=== PATIENT | female | born 1955 | race Caucasian/White ===

== ENCOUNTER → 2016-08-14 | Outpatient (CLI) | payer OTHER ==
[~2016-08-14] MED LIST: CHOL100027 PO; CITA40TA4 PO; ESTR1TAB2 PO; FLUC150T54 PO; HYDR1CAP85 PO; KETO2CRE14 TOP; LACTCAP PEG; LAMO25TA PO; LEVO125T72 PO; LORA-741 PO; SODI1TAB17 PO; VITA400C3 PO
--- NOTE | 2016-08-15 05:39 | PAP/PSG TECHNICIAN REPORT ---
[facility] Clinical Applications Specialist Polysomnogram Report Study name: None Report date: 08/15/2016 Study date: 08/14/2016 Referring Physician: Selam ROBLEDO M.D. Name: KENTRELL ROSE Interpreting Physician: Leida Robledo M.D. Date of : 1955 Clinical Applications Specialist: Mana Hernandez RPS. Sex: Female Age: 61 Study Type: PSG PAP Weight: 232 lbs Height: 61 years, Height 5' 2" BMI: 42.43 Medications: LEVOTHYROXINE 125 MCG, LAMOTRIGINE 25 MG, LATANOPROST 0.005%, POLYETHYL GLYCOL-PROPYL GLYCOL 0.4-0.3% OPHTHALMIC SOLN, MULTI VIT, LORAZEPAM 0.5 MG, CITALOPRAM 40 MG, ESTRADIOL 1 MG, VIT E 400 UNIT, NYSTATIN [id number] UNIT/GM Patient History 61 yr-old female here for a new CPAP treatment study. She was found to be positive for ELIZABETH via a home sleep study. Her AHI was 21.7. She chose a Quattro Air full face mask size medium from [employer]. The test was started on room air and 4 CMH2O. ETCO2 testing was not utilized during this study. Room 1 Parameters Monitored NPSG: E1-M2, E2-M1, Fp1-M2, Fp2-M1, F3-M2, F4-M2, F4-M1, C3-M2, C4-M2, C4-M1, O1-M2, O2-M2, O2-M1, T3-M2, T4-M1, P3-M2, P4-M1, CHIN1, CHIN2, HR, EKG, Legs, PFLOW, SNOR, FLOW, CFLOW, Tidal Volume, THOR, ABDO, SpO2, PLTH, CPRESS, ETCO2 Wave, ETCO2, pH Sleep Architecture Sleep Stages Time at Lights Off 10:19:15 PM STAGES Time (min.) TST (%) Time at Lights On 5:28:15 AM Wake 317.0 -- Total Recording Time (TRT) 429.00 min. N1 25.0 22 Total Sleep Period (TSP) 259.5 min. N2 70.0 63 Total Sleep Time (TST) 112.0min. N3 17.0 15 Awake Time 317.0 min. REM 0.0 0 Wake after Sleep Onset 223.5 min. Sleep Efficiency (SE) 26 % Sleep Onset Latency (JT) 93.5 min. Number of Stage 1 Shifts None Awakenings 10 Stage Changes 43 Number of REM periods N/A REM 0.0 0 REM Latency NONE min. NREM 112.0 100 Body Position Analysis Supine Right Left Side Prone Vertical Total Sleep Time (min.) 63.9 2.5 109.5 112.00 0.0 0.0 Total Sleep Time (%) 0% 2% 98% 100 0% N/A% Total Sleep Time REM (min.) 0.0 0.0 0.0 None 0.0 0.0 Total Sleep Time NREM (min.) 0.0 2.5 109.5 None 0.0 0.0 Intermittent Wake (min.) 63.9 104.2 148.9 None 0.0 0.0 Total Sleep Period (%) 8% None None None None None Arousals Myoclonus (PLM) * Events Count Index Events Count Index Spontaneous 8 4 Events Awake (PLMW) 569 107.7 Respiratory 4 2.1 Events Asleep w/ Arousal (PLMA) 32 17.1 PLM 31 17 Events Asleep w/o Arousal (PLMS) 48 25.7 Snoring 0 0 Total Asleep 80 42.9 Total 43 23 Total 649 91 Respiratory Analysis * CA OA MA CH H RERA Total Count 0 1 0 0 17 0 18 Index 0.0 0.5 0.0 0 9.1 0 9.6 Mean Duration 0.0 10.0 0.0 0.00 15.9 0.0 15.6 Longest Duration 0.0 10.0 0.0 0.00 0.0 0.0 17.8 Respiratory Event Summary Total Supine ~Supine Right Left Prone REM NREM Apneas Count 1 N/A 1 0 1 N/A N/A 1 Index 0.5 N/A 1 0.0 0.5 N/A N/A 1 Hypopneas (4% Desat) Count 17 N/A 17 1 16 N/A N/A 17 Index 9.1 N/A 9 24.0 8.8 N/A N/A 9.1 Apneas & All Hypopneas Count 18 N/A 18 1 17 N/A N/A 18 Index 9.6 N/A 10 24 9 N/A N/A 9.6 Respiratory Events (Content Editor+All Hyp+RERA) Count 18 N/A 18 1 17 N/A N/A 18 Index 9.6 N/A 10 24.0 9.3 N/A N/A 9.6 Respiratory Related Arousal Count 4 N/A 4 1 3 N/A N/A 4 Index 2.1 N/A 2 24 2 N/A N/A 2 Snoring Analysis Supine Right Left Prone REM NREM Total Snore duration 1.7 min Snores count N/A 0 95 N/A N/A 95 95 Snore mean duration 1.0 Sec Snores index N/A 0 52 N/A N/A 50.9 50.9 TST with snoring (%) 1.5% Desaturation Event Summary: Minimum %SpO2 Event Count Mean/Min/Max Duration(sec.) Desaturation Index % Time In Bed > 90 113 23.1 / 4.3 / 57.8 53.6 31.1 86 - 90 95 19.5 / 8.0 / 60.0 21.2 66.2 81 - 85 0 N/A 0.0 2.7 76 - 80 0 N/A 0.0 0.0 71 - 75 0 N/A 0.0 0.0 66 - 70 0 N/A 0.0 0.0 61 - 65 0 N/A 0.0 0.0 56 - 60 0 N/A 0.0 0.0 51 - 55 0 N/A 0.0 0.0 < 50 0 N/A 0.0 0.0 Total REM NREM Awake <50% 0.0 min. 0.0 min. 0.0 min. 0.0 min. 51 - 60% 0.0 min. 0.0 min. 0.0 min. 0.0 min. 61 - 70% 0.0 min. 0.0 min. 0.0 min. 0.0 min. 71 - 80% 0.0 min. 0.0 min. 0.0 min. 0.0 min. 81 - 90% 280.2 min. 0.0 min. 106.4 min. 173.8 min. 91 - 100% 126.5 min. 0.0 min. 5.6 min. 120.9 min. Average 90 0 88 90 Minimum SpO2 80 N/A 83 80 Desaturation Event Index 21.1 0.0 17.7 22.3 # Desat. Events below 89% 111 N/A 32 79 Time(%) with Saturation below 89% 33.2 0.0 17.6 15.6 Time(min.) with Saturation below 89% 135.0 0.0 71.6 63.4 Time (mins) REM (mins) NREM (mins) % of TST SpO2 Below 90% 33 N/A N33 83.6 SpO2 Below 88% 11 0 0 39 Heart Rate Analysis Min (bpm) Max (bpm) Average (bpm) Awake 67 93 80 NREM 67 84 75 REM N/A N/A N/A Overall 67 84 75 Supplemental O2 Values Minimum O2 level: None Value Start Time End Time Clinical Applications Specialist Comments Ms. Rose slept in the right, left, and supine positions. No cardiac arrhythmias were noted. No bruxism noted. CPAP was initiated at +4 CMH2O and up-titrated to a level of +9 CMH2O, Cflex 3 which nearly eliminated all respiratory events and snoring. A Quattro Air full face mask size medium from [employer] was used during titration She awoke to use the restroom two times during the night. Ms. Rose stated that she did not sleep as well as normal. The final report will be interpreted and signed by a sleep physician. The completed physician report will then be placed in the patient medical record. Therapy Event: Therapy (cm H20) 4 6 7 9 Total Time at Pressure (min.) 97.9 174.5 47.0 109.6 TST at Pressure (min.) 2.9 39.5 37.0 32.6 # Periods 1 1 1 1 Sleep Onset (min.) 93.5 0.0 0.0 0.0 REM Onset (min.) N/A N/A N/A N/A Sleep Efficiency % 3 22 78 29 Wakefulness (%) 97.0 77.4 21.3 70.3 Wakefulness (min.) 95.0 135.0 10.0 77.0 NREM 1 (%) 3.0 4.6 18.1 5.0 NREM 1 (min.) 2.9 8.1 8.5 5.5 NREM 2 (%) 0.0 12.9 48.7 22.4 NREM 2 (min.) 0.0 22.5 22.9 24.6 NREM 3 (%) 0.0 5.1 12.0 2.3 NREM 3 (min.) 0.0 8.9 5.6 2.5 REM (%) 0.0 0.0 0.0 0.0 REM (min.) 0.0 0.0 0.0 0.0 # Arousals 6 14 14 9 Arousal Index 123.9 21.3 22.7 16.6 # Snore 1 57 27 10 Snore Index 20.6 86.7 43.7 18.4 AHI 0.0 4.6 21.1 3.7 AHI Supine N/A N/A N/A N/A AHI Non-Supine 0.0 4.6 21.1 3.7 NREM AHI 0.0 4.6 21.1 3.7 REM AHI N/A N/A N/A N/A RDI 0.0 4.6 21.1 3.7 # Obstructive 0 0 1 0 # Central Ap 0 0 0 0 # Mixed 0 0 0 0 # Hypopneas 0 3 12 2 RERAS 0 0 0 0 Total Respiratory Events 0 3 13 2 Time Below SpO2 89.00% (min.) 2.0 36.9 25.6 7.1 Mean NREM SpO2 (%) 88 87 88 89 Mean REM SpO2 (%) N/A N/A N/A N/A Mean Sleep SpO2 (%) 88 87 88 89 Min NREM SpO2 (%) 85 83 84 86 Min REM SpO2 (%) N/A N/A N/A N/A Position Supine (min.) 0.0 0.0 0.0 0.0 Position Non-supine (min.) 2.9 39.5 37.0 32.6 LM Index Sleep 206.4 48.7 38.9 25.8 LM Index NREM 206.4 48.7 38.9 25.8 LM Index REM N/A N/A N/A N/A Mean Heart Rate (bpm) 78 78 74 73 Min Heart Rate (bpm) 75 73 68 67
--- NOTE | 2016-09-08 10:17 | POLYSOMNOGRAPH REPORT ---
REFERRING PERSON: Dr. Mau Robledo. MACHINERY DISMANTLER: Mana Hernandez. Ms. Pelletier is a 61-year-old female who was shown to have moderately severe sleep apnea on a home sleep test and returns to the sleep lab for titration. Her original AHI was 21.7. She has chosen a medium Quattro Air full facemask by [employer]. Following the technical and digital specifications of the [place] [employer] (AASM) a standard diagnostic polysomnogram was performed monitoring EEG, EOG, EMG (chin and leg deviations), oxygen saturation, body position, digital video, respiratory effort and airflow. The sleep Stage and event scoring was based on the AASM Manual for the Scoring of Sleep and Associated Events 2007 edition. Apneas are defined as a drop in the peak thermal sensor excursion by >90% of baseline for at least 10 seconds. Hypopneas were scored using the 4% oxygen desaturation rule (4A-Medicare) and a decrease in the nasal pressure excursions by >30% of baseline for at least 10 seconds. Respiratory effort-related arousal (RERA's) is defined as a sequence of breaths lasting at least 10 seconds characterized by increasing respiratory effort or flattening of the nasal pressure waveform leading to an arousal from sleep when the sequence of breaths does not meet criteria for an apnea or hypopnea. Apnea Hypopnea index (AHI) is defined as the number of apneas and hypopneas occurring in an hour of sleep. Respiratory disturbance index (RDI) is defined as the number of apneas, hypopneas, and RERA's occurring in an hour of sleep. Ms. Pelletier's total sleep period time was 259.5 minutes. Her total sleep time was short at 112 minutes. Sleep efficiency was only 26%. Latency to sleep onset was 93.5 minutes with wake after sleep onset of 223.5 minutes. There was no REM noted on this test. She spent 21% of her sleep time in N1 sleep, 63% in N2 sleep, and 15% in N3 sleep. There were 43 cortical arousals from sleep. Eight of these arousals were spontaneous, 4 were due to respiratory events, and the remaining 31 were due to periodic limb movements of sleep. There were 80 periodic limb movements noted on this test. Limb movement index was 42.9. Limb movement with arousal index was 17.1. There were no central, 1 obstructive, and no mixed apneas on this test. There were 17 hypopneas and no RERA. Apnea-hypopnea index was 9.6. There were 95 snoring events recorded. Total sleep time with snoring was 1.5%. Mean saturation was 90% with desaturations noted to 80%. Saturations were less than 89 for 135 minutes of recorded time. There was no cardiac ectopy noted on this study. Heart rates ranged from a low of 67 beats per minute to a high of 84 beats per minute during sleep. As stated above, this was a CPAP titration study. She used a medium Quattro Air full facemask for her titration. Her total sleep time was short. She spent only 32.6 minutes at a pressure of 9. Again, all the sleep was non-REM sleep. AHI and RDI on this pressure were both 3.7, but her saturations remained below 89 for 7.1 minutes of recorded time. IMPRESSION AND PLAN: 1. Suboptimal CPAP titration study in this patient with a short sleep time on this titration. I would recommend that she be started on CPAP at a pressure of 9. A download from her machine can be reviewed in 1 month both to check compliance as well as AHI, and further pressure adjustments can occur at that time. 2. Additionally, this patient should have an overnight oximetry on CPAP at 9 and room air. She may qualify for nocturnal oxygen. Clinical correlation is needed.
== END | disposition home or self-care (01) ==
LOC: C.NEUR 21:00
PROVIDERS: ATTEND Family Medicine
DX: G47.33 Obstructive sleep apnea (adult) (pediatric) (principal)

== ENCOUNTER 2017-04-14 13:51 | Emergency (ER) | payer OTHER ==
[~2017-04-14] VITALS: Ht 152.4 cm; Wt 103.0 kg
[~2017-04-14 13:51] MED LIST changes: -FLUC150T54 PO; +FLUC150T63 PO
[2017-04-14 13:56] VITALS: TEMP 36.7; Ht 152.4 cm; Wt 103.0 kg
[2017-04-14] MEDS ORDERED: MoRPHine SULFATE 4 MG/ML 1 ML CARP\\VIAL IM STA (14:11)
[2017-04-14] MEDS ORDERED: ONDANSETRON 4MG OD TAB PO ONE (14:15)
--- NOTE | 2017-04-14 14:35 | DIAGNOSTIC IMAGING REPORT ---
L KNEE 1 OR 2 VIEWS ROUTINE CLINICAL HISTORY: Left knee pain COMPARISON: November 2014 DISCUSSION: There are moderately advanced arthritic changes with marked narrowing medial joint compartment. There are dorsal patellar spurs. There is a probable small loose body projected over the medial aspect of the lateral joint compartment. IMPRESSION: Moderately advanced osteoarthritic change. No acute fractures Electronically signed by: Gilles Huffman M.D. 04/14/2017 2:34 PM Dictated Date/Time: 04/14/2017 2:33 PM
[2017-04-14] MEDS ORDERED: HYDR-5688 PO (14:49)
[2017-04-14] MEDS ORDERED: NORCO 5/325MG HOME PACK PO ONE (15:00)
[2017-04-14] MEDS ORDERED: LATA0.5S OP (15:11)
[2017-04-14] MEDS ORDERED: CARBGEL OP (15:11)
[2017-04-14] MEDS ORDERED: CALC1CHW32 PO (15:11)
[2017-04-14 15:19] VITALS: BP 142/78; PULSE 100; O2SAT 98
--- NOTE | 2017-04-14 20:07 | EMERGENCY ROOM VISIT NOTE ---
History Report prepared by Jayson: Mavis Chavis Under the Supervision of: Dr. Mazin Blackman M.D. First contact with patient: 14:04 Chief Complaint: KNEEPAIN Stated Complaint: PAIN IN LEFT KNEE, COULD BE ARTHRITIS History of Present Illness The patient is a 61 year old female who presents to the Emergency Room with complaints of constant front left knee pain beginning yesterday. The patient rates her pain as a 9/10. She denies any redness or swelling around her knee. The patient has had shots in her knees by Dr. [facility] previously for a history of arthritis. The patient has a history of two budging discs in her back which she reports sometimes causes her pain radiating to her hip and legs. She denies taking anything for her pain. She denies any recent falls or trauma to her knee. Pt denies LOC, headache, fevers, chills, diaphoresis, visual changes, neck pain, chest pain, breathing difficulties, nausea, vomiting, abdominal pain, back pain, numbness, weakness, lymphadenopathy, rash, calf pain , hip pain. or other complaints. Source of History: patient Onset: yesterday Position: knee (left) Symptom Intensity: 9/10 Quality: other (pain) Timing: constant Associated Symptoms: No chest pain, No SOB Review of Systems See HPI for pertinent positives and negatives. A total of six systems were reviewed and were otherwise negative. Past Medical & Surgical Medical Problems: (1) Primary osteoarthritis of knees, bilateral (2) Umbilical hernia Family History Cancer FH: diabetes mellitus Gallbladder disease Heart disease Social History Smoking Status: Never Smoker Alcohol Use: none Drug Use: none Marital Status: Housing Status: lives with family Occupation Status: unemployed Current/Historical Medications Scheduled Calcium Phosphate-Cholecalcife (Caltrate Gummy Bites), 2 TABS PO DAILYBB Cholecalciferol (Vitamin D 1000 Unit), 5,000 INTER.UNIT PO DAILY Citalopram Hydrobromide (Citalopram Hydrobromide), 40 MG PO DAILY Lamotrigine (Lamictal), 50 MG PO BID Latanoprost (Xalatan 0.005% Oph Didi), 1 DROPS OP HS Levothyroxine Sodium (Synthroid), 125 MCG PO DAILY Lorazepam (Ativan), 0.5 MG PO BID Vitamin E (Vitamin E 400 Iu), 400 INTER.UNIT PO DAILY Scheduled PRN Carboxymethylcellulose-Hyprome (Genteal), 1 DROP OP UD PRN for ry eyes Hydrocodone/Acetaminophen 5MG/325MG ([place] 5MG/325MG), 1-2 TABS PO Q6H PRN for Pain Allergies Coded Allergies: Baclofen (Verified Allergy, Unknown, unk, 04/14/17) Cefprozil (Verified Allergy, Unknown, Unknown, 04/14/17) Naproxen (Verified Allergy, Unknown, unk, 04/14/17) Uncoded Allergies: PROPAFOL (Allergy, Unknown, unk, 04/14/17) Physical Exam Vital Signs Date Time Temp Pulse Resp B/P (MAP) Pulse Ox O2 Delivery O2 Flow Rate FiO2 04/14/17 15:19 100 20 142/78 98 04/14/17 13:56 36.7 110 18 148/87 99 Room Air Physical Exam GENERAL: Awake, alert, well-appearing, in no distress HENT: Normocephalic, atraumatic. Oropharynx unremarkable. EYES: Normal conjunctiva. Sclera non-icteric. NECK: Supple. No nuchal rigidity. FROM. No masses. RESPIRATORY: Clear to auscultation. No wheezes. CARDIAC: Normal rate. Normal rhythm. No murmurs. No rubs. Extremities warm and well perfused. Pulses equal. No JVD. GI: Soft, non-distended. No tenderness to palpation. No rebound or guarding. No masses. RECTAL: Deferred. MUSCULOSKELETAL: Atraumatic. Chest examination reveals no tenderness. No joint edema. LOWER EXTREMITIES: Tenderness along the anterior medial aspect of left knee along the joint line. Negative Mickie's sign. Calves are equal size bilaterally and non-tender. No edema. No discoloration. NEURO: Normal sensorium. No sensory or motor deficits noted. SKIN: No rash or jaundice noted. Medical Decision & Procedures ER Provider Diagnostic Interpretation: Radiology results as stated below per my review and radiologist interpretation: L KNEE 1 OR 2 VIEWS ROUTINE DISCUSSION: There are moderately advanced arthritic changes with marked narrowing medial joint compartment. There are dorsal patellar spurs. There is a probable small loose body projected over the medial aspect of the lateral joint compartment. IMPRESSION: Moderately advanced osteoarthritic change. No acute fractures Electronically signed by: Gilles Geselowitz, M.D. Medications Administered Medications (Trade) Dose Ordered Sig/Jalen Route Start Time Stop Time Status Last Admin Dose Admin Ondansetron HCl (Zofran Odt) 4 mg ONE ONCE PO 04/14/17 14:15 04/14/17 14:16 DC 04/14/17 14:27 4 MG Morphine Sulfate (MoRPHine SULFATE INJ) 4 mg NOW STAT IM 04/14/17 14:11 04/14/17 14:12 DC 04/14/17 14:27 4 MG ED Course 1405: The patient was evaluated in room D9. A complete history and physical exam was performed. 1411: Ordered Morphine Sulfate 4 mg IM. 1415: Ordered Zofran Odt 4 mg PO. 1452: I updated the patient on her test results. She is feeling better. 1500: Ordered Hydrocodone Bitart/Acetaminophen 1 homepack PO. 1503: I reevaluated the patient. Discussed results and discharge instructions: She verbalized understanding and agreement. The patient is ready for discharge. Medical Decision Triage Nursing notes reviewed. The patient's presentation and history were concerning for knee pain. Etiologies such as osteoarthritis, soft tissue injury, fracture, dislocation, neurovascular compromise, compartment syndrome, DVT, as well as others were entertained. The patient was evaluated. She has a history of osteoarthritis. She noted moderate to severe pain. No trauma. No signs of infection on examination. No stigmata of DVT. No calf tenderness. She had point tenderness in the medial joint line. X-ray imaging showed a significant amount of degenerative joint disease. She has a bone on bone issue in the medial compartment. The patient was given a wall Zofran and 4 mg IM morphine. She felt better with this. I discussed conservative management with a limited amount of [place] to use only for severe pain. She was counseled on the use of this and her other medications. The patient has seen orthopedics in the past. I did refer her back to her orthopedic office. If she has any worsening problems she will come back to the Emergency Room. I gave my usual and customary discussion regarding this issue. By the evaluation outlined above other emergent etiologies such as those listed in the differential, as well as others, were deemed relatively unlikely. The patient was educated about the findings as listed above. All questions were answered and the patient was pleased with the treatment. Return instructions were outlined and the patient was discharged in stable condition. The patient was referred to Ortho and her PCP for follow-up for a recheck of the current condition. [place] Drug Monitoring Program Search Results: patient reviewed within database, no issues identified Medication Reconcilliation Current Medication List: was personally reviewed by me Blood Pressure Screening Patient's blood pressure: Elevated blood pressure Blood pressure disposition: Referred to PCP Impression Primary Impression: Left knee pain Additional Impression: Osteoarthritis of left knee Scribe Attestation The scribe's documentation has been prepared under my direction and personally reviewed by me in its entirety. I confirm that the note above accurately reflects all work, treatment, procedures, and medical decision making performed by me. Departure Information Dispostion Home / Self-Care Prescriptions Hydrocodone/Acetaminophen 5MG/325MG ([place] 5MG/325MG) Tab 1-2 TABS PO Q6H Y for Pain, #12 TAB Prov: Mazin Blackman MD 04/14/17 Referrals Louie Dinh M.D.([facility]) (PCP) Forms HOME CARE DOCUMENTATION FORM, IMPORTANT VISIT INFORMATION Patient Instructions My [facility] Additional Instructions ORTHOPEDIC INSTRUCTIONS: DO NOT drive, drink alcohol, operate machinery, or perform dangerous activities today. You were given medications in the ER that can affect your ability to safely function or operate a vehicle. Hydrocodone/acetaminophen 5/325mg: Take 1 pill every 6 hours only as needed for severe pain. Do not take this at the same time as your Ativan as it can cause you to be very sleepy. Avoid additional Acetaminophen/Tylenol, alcohol, operating machinery or dangerous equipment, working on ladders or roofs, DRIVING , or situations where being under the influence may be dangerous. It is recommended to use a stool softener such as Colace, 100mg twice daily while taking this medication to avoid constipation. Ice compresses for 20 minutes at a time four times daily for 2-3 days. Use a cane for support. Rest. Return to the ER immediately for any numbness, tingling, severe pain, extreme swelling in the extremity or as needed. Call [facility], [phone], Saturday to arrange follow up for your knee. Follow-up with your primary care physician in 2 to 3 days for a recheck of your current condition. Problem Qualifiers
== END 2017-04-14 15:22 | disposition home or self-care (01) ==
LOC: C.EDB 13:52 → C.EDD 15:22
DX: M25.562 Pain in left knee (principal); M17.0 Bilateral primary osteoarthritis of knee; M51.26 Other intervertebral disc displacement, lumbar region; Z88.6 Allergy status to analgesic agent; Z88.0 Allergy status to penicillin; Z88.4 Allergy status to anesthetic agent; Z83.3 Family history of diabetes mellitus

== ENCOUNTER → 2017-09-30 | Outpatient (CLI) | payer OTHER ==
[~2017-09-30] MED LIST changes: +ACET-1256 PO; +CALC1CHW32 PO; -CHOL100027 PO; -ESTR1TAB2 PO; -FLUC150T63 PO; -HYDR1CAP85 PO; -KETO2CRE14 TOP; -LACTCAP PEG; +LATA0.5S OP; +MECL25CH PO; +MELA1TAB5 PO; +MULT1CHW39 PO; -SODI1TAB17 PO; +VITA1TAB4 PO; -VITA400C3 PO; +[UNRECOGNIZED DRUG - OTHER] PO; +[UNRECOGNIZED DRUG - OTHER] TOP
--- NOTE | 2017-09-30 10:45 | DIAGNOSTIC IMAGING REPORT ---
CHEST 2 VIEWS ROUTINE CLINICAL HISTORY: pat preoperative evaluation COMPARISON STUDY: No previous studies for comparison. FINDINGS: The bones soft tissues and hemidiaphragms are normal. The cardiomediastinal silhouette is normal. The lungs are clear. The pulmonary vasculature is normal. IMPRESSION: Negative chest. The above report was generated using voice recognition software. It may contain grammatical, syntax or spelling errors. Electronically signed by: Clark Aldridge M.D. 09/30/2017 10:44 AM Dictated Date/Time: 09/30/2017 10:44 AM
[2017-09-30 10:53] LABS: HEMATOCRIT 42.5 % (37-47); HEMOGLOBIN 14.1 g/dL (12.0-16.0); LYMPH % 30.9 %; LYMPH ABS # 1.88 K/uL (1.2-3.4); MEAN CORPUSCULAR HEMOGLOBIN 29.2 pg (25-34); MEAN CORPUSCULAR HGB CONC 33.2 g/dl (32-36); MEAN PLATELET VOLUME 9.4 fL (7.4-10.4); MONO % 5.3 %; MONO ABS # 0.32 K/uL (0.11-0.59); NEUT % 63.8 %; NEUT ABS # 3.88 K/uL (1.4-6.5); PLATELET COUNT 240 K/uL (130-400); RED CELL DISTRIBUTION WIDTH CV 13.8 % (11.5-14.5); RED CELL DISTRIBUTION WIDTH SD 44.6 fL (36.4-46.3); WHITE BLOOD COUNT 6.08 K/uL (4.8-10.8)
[2017-09-30 11:02] LABS: INR 0.9 (0.9-1.1); PTT PATIENT 23.1 SECONDS (21.0-31.0)
[2017-09-30 11:04] LABS: BLOOD UREA NITROGEN 16 mg/dl (7-18); CALCIUM 9.2 mg/dl (8.5-10.1); CARBON DIOXIDE 24 mmol/L (21-32); CREATININE 0.66 mg/dl (0.60-1.20); GLUCOSE 73 mg/dl (70-99); POTASSIUM 3.9 mmol/L (3.5-5.1); SODIUM 136 mmol/L (136-145)
== END | disposition home or self-care (01) ==
LOC: C.CPL 09:39
PROVIDERS: ATTEND Orthopaedic Surgery Sports Medicine
DX: Z01.818 Encounter for other preprocedural examination (principal)

== ENCOUNTER 2018-08-19 10:08 | Inpatient (IN) ==
--- NOTE | 2018-08-12 15:37 | Anesthesiology Consultation ---
Date of Service August 12, 2018 Assessment & Plan (1) Encounter for pre-operative examination: - S/P left TKA: 10/22/17: SAB x1 at L3-L4 + PNB at [facility] Chart Review Chart Review: Acceptable Risk for Surgery and Patient NOT seen in Pre Admission Testing History Surgery Operation Date: 08/19/18 08:50 Proposed Procedures p Right Total Knee Arthroplasty - Pelon Kaiser MD Height/Weight Height: 5 ft Weight: 111.584 kg Allergies Allergy/AdvReac Type Severity Reaction Status Date / Time baclofen Allergy Severe Chest Pain Verified 08/12/18 14:07 naproxen Allergy Mild UMBILICAL Verified 08/12/18 14:07 RASH cefprozil Allergy Unknown UNKNOWN Verified 08/12/18 14:07 Medications Home Medications Medication Instructions Recorded Confirmed Last Taken citalopram 40 mg PO QAM #0 11/21/14 08/12/18 10/22/17 06:30 40 mg lamotrigine [Lamictal] 50 mg PO BID #0 tab 11/21/14 08/12/18 10/22/17 07:00 50 mg levothyroxine 125 mcg PO QAM #0 tab 11/21/14 08/12/18 10/22/17 06:30 125 mcg lorazepam 0.5 mg PO BID #0 tab 11/21/14 08/12/18 10/22/17 07:00 0.5mg latanoprost 1 drp OPHTHALMIC (EYE) PM #0 04/14/17 08/12/18 10/21/17 21:00 one drop each multivitamin 1 tab PO QAM #0 09/24/17 08/12/18 Unknown vitamin E 400 unit PO QAM #0 09/24/17 08/12/18 Unknown timolol maleate 1 drp OPHTHALMIC (EYE) QAM 08/12/18 08/12/18 Unknown Past Medical History Medical History Anemia Anxiety Chronic back pain Depression Fatty (change of) liver, not elsewhere classified Hx of deep venous thrombosis 1989 Hypothyroidism R/T RADIOACTIVE IODINE Migraine Obesity, morbid, BMI 40.0-49.9 Osteoarthritis Post traumatic stress disorder Prediabetes Psoriasis Sleep apnea CPAP Past Family History Family History Unknown Family history of diabetes mellitus Past Surgical History Surgical History History of total knee replacement LEFT Hx laparoscopic cholecystectomy Hx of colonoscopy Hx of dilation and curettage Hx of hysterectomy Hx of lumpectomy RIGHT BREAST X2 LUMPS Hx of wisdom tooth extraction Nausea and vomiting after administration of anesthetic agent Social History Smoking Status: Never smoker Do You Dip or Chew Tobacco: No Hx Alcohol Use: No Hx Substance Use: No substance use type: does not use Testing Laboratory Results 08/01/18 WBC 5.78 H/H 14.0/42.6 PLATELETS 262 SODIUM 140 POTASSIUM 4.2 CHLORIDE 106 CO2 29 BUN 16 CREATININE 0.73 GLUCOSE 93 PT 10.1 PTT 24.8 INR 1.0 Electrocardiogram Date: 08/01/18 Findings: + NSR @ (75) Chest X-Ray Date: 08/01/18 Findings: + NAD Atherosclerosis of the aortic arch. Cardiac silhouette normal in size. Lungs and pleural spaces clear. Mildly exaggerated thoracic kyphosis without a focal compression deformity. Cholecystectomy clips noted.
--- NOTE | 2018-08-16 13:39 | History and Physical Report ---
DATE OF ADMISSION: 08/19/2018 CHIEF COMPLAINT: Right knee pain and discomfort. HISTORY OF PRESENT ILLNESS: This is a 63-year-old white female, now a little over 9 months out from left knee replacement who presents for surgical treatment of her right knee. She has had a long history of knee problems over the years and been through extensive conservative treatment which has failed over time. She underwent this left knee replacement about 9 months ago and has done remarkably well with this. Very happy with the left knee. Continues to be debilitated by right knee pain. She describes global pain. The more she walks, the more it hurts. She limps pretty much all day long. She uses a walker to get around as a result of her knee pain and limitations. She has nighttime pain. She would like to have her right knee fixed. PAST MEDICAL HISTORY: 1. Sleep apnea, CPAP machine. 2. Anxiety/depression. 3. Hypothyroidism. 4. Chronic anemia. 5. Low back pain. 6. Obesity with a BMI of 48. 7. COPD with oxygen use at nighttime only. 8. Elevated cholesterol. PAST SURGICAL HISTORY: Previous surgeries include: 1. Oral surgery. 2. Cholecystectomy. 3. Cyst removed from her breast. 4. D and C. 5. Left knee replacement done on 10/22/2017. ALLERGIES: CEFZIL WHICH CAUSES RESPIRATORY PROBLEMS. CURRENT MEDICINES: Include: 1. Lamotrigine 25 mg 2 tablets twice a day. 2. Lorazepam 0.5 mg twice a day. 3. Levothyroxine 125 mcg in the morning. 4. Estradiol 1 mg a day. 5. Citalopram 40 mg. 6. Vitamin E 400 international units a day. 7. Melatonin 3 mg before she goes to bed. 8. Tylenol 1000 mg 4 times. 9. Latanoprost eyedrops 1 drop in each eye at night time. 10. Gentle Tears as needed. 11. Clears topical solution for toenails. 11. Caltrate gummies twice a day. SOCIAL HISTORY: A 63-year-old white female. She is . Family support system is not real good. She does not smoke. No alcohol intake. FAMILY HISTORY: Noncontributory. REVIEW OF HISTORY: Negative for diabetes, neurologic problems, vascular problems, bleeding disorders. No chest pain or shortness of breath. No history of DVT or PE. She does have a significant obesity with a BMI of 48. PHYSICAL EXAMINATION: GENERAL: Reveals a pleasant, middle-aged female. Looks to be in reasonably good health. HEENT: Benign. NECK: Supple. No lymphadenopathy. LUNGS: Clear to auscultation. HEART: Regular rate and rhythm. ABDOMEN: Soft, nontender, nondistended. EXTREMITIES: Grossly neurovascularly intact except as follows: Examination of the right knee reveals the patient walks with a bit of a limp. She does use a walker to get around. She has got a large soft tissue envelope. She has got varus alignment to her knee. She is tender over the medial joint line. Small knee effusion. Range of motion about 10 degrees short of full extension to 110 degrees of flexion. Examination of the left knee reveals well-healed incision. Knee alignment looks anatomic. Range of motion is 0-115. No instability. X-RAYS: X-ray of the right knee reviewed. Shows advanced right knee DJD. She has got tricompartment disease, most severe in the medial side with complete loss of her medial joint space. She has got osteophytes off the medial femoral condyle and medial tibial plateau. ASSESSMENT: A 63-year-old white female 9 months out from a left knee replacement with advanced right knee degenerative joint disease. She has failed conservative treatment. She is happy with the left knee and would like to have her right knee replaced. Unfortunately, she does not have the best social situation as far as help with recovery. PLAN: We are going to proceed with right knee replacement at her request. The risks and benefits of the right total knee replacement were explained to the patient including but not limited to DVT, PE, , infection, neurological injury, vascular injury, bleeding problems, pain, limited range of motion, stiffness, failure to relieve her symptoms, persistent pain, need for revision surgery, need for blood transfusion, etc. The patient understands and desires to proceed. Informed consent was obtained. We did talk about bringing her CPAP machine to the hospital. She uses oxygen at nighttime. We will hopefully get her discharged to [facility] for rehab stay similar to last time. I will see her back 2 weeks postop.
[~2018-08-19 10:08] MED LIST changes: -ACET-1256 PO; +ACETAMINOPHEN 500 MG TAB PO SCH; +BUPIVACAINE 0.5 % 5 MG/1 ML PF 10ML VIAL ONE; +BUPIVACAINE LIPOSOME/PF 266 MG, BUPIVACAINE/EPINEPHRINE 50 ML, SODIUM CHLORIDE 0.9% 30 ... INFIL SCH; +BUPIVACAINE/EPINEPHRINE 0.25% 1:200,000 30 ML VIAL ONE; -CALC1CHW32 PO; -CITA40TA4 PO; +DEXAMETHASONE SOD INJ 4 MG/ML VIAL ONE; +FAMOTIDINE 20 MG TAB PO SCH; +GABAPENTIN 300 MG x 2 PO SCH; -LAMO25TA PO; -LATA0.5S OP; -LEVO125T72 PO; -LORA-741 PO; +LR 500ML BOLUS, THEN 15ML/HR IV SCH; +LR 60ML/HR IV SCH; -MECL25CH PO; -MELA1TAB5 PO; +METOCLOPRAMIDE HCL 10 MG TABLET PO SCH; -MULT1CHW39 PO; +SCOPOLAMINE 1.5 MG TDSY TD SCH; +TRANEXAMIC ACID 1,000 MG **IV Intra-op IV SCH; +VANCOMYCIN HCL 1,750 MG in SODIUM CHLORIDE 0.9% 500 ML IV SCH; -VITA1TAB4 PO; -[UNRECOGNIZED DRUG - OTHER] PO; -[UNRECOGNIZED DRUG - OTHER] TOP
[2018-08-19] MEDS ORDERED: VANCOMYCIN HCL 1 GM/270 ML BAG ONE (10:26)
--- NOTE | 2018-08-19 11:03 | History & Physical Bridge Note ---
Date of Service August 19, 2018 History & Physical Bridge Note I have examined the patient, reviewed the History & Physical and in the interval since the performance of the History & Physical I have noted the following changes of clinical significance: no changes noted
[2018-08-19] MEDS ORDERED: LIDOCAINE HCL 2% 2 ML VIAL/AMP(20MG/ML) INFIL ONE (11:42)
[2018-08-19] MEDS ORDERED: MIDAZOLAM HCL 1 MG/ML 2ML VIAL ONE ×2 (11:42→13:52)
[2018-08-19] MEDS ORDERED: fentaNYL citrate 100 MCG/2 ML VIAL ONE (11:42)
[2018-08-19] MEDS ORDERED: PROPOFOL IV EMULSION 10 MG/ML 20 ML VIAL IV ONE (11:42)
[2018-08-19] MEDS ORDERED: fentaNYL citrate 100 MCG/2 ML VIAL IV PRN (12:33)
[2018-08-19] MEDS ORDERED: ePHEDrine sulfate 50 MG/ML AMP IV PRN (12:33)
[2018-08-19] MEDS ORDERED: ONDANSETRON INJ 2 MG/ML 2 ML VIAL IV PRN ×2 (12:33→16:33)
[2018-08-19] MEDS ORDERED: ATROPINE SULFATE 0.1 MG/ML 10ML SYR IV PRN (12:33)
[2018-08-19] MEDS ORDERED: EPINEPHrine INJ 1 MG/ML AMP ONE (13:07)
[2018-08-19] MEDS ORDERED: BUPIVACAINE 0.25% 30 ML VIAL ONE (13:07)
[2018-08-19] MEDS ORDERED: BUPIVACAINE LIPOSOME 1.3% 266 MG/20 ML VIAL ONE (13:07)
[2018-08-19] MEDS ORDERED: BACITRACIN INJ 50,000 UNIT VIAL ONE (13:07)
[2018-08-19] MEDS ORDERED: SODIUM CHLORIDE 0.9% PF 50 ML VIAL ONE (13:07)
[2018-08-19] MEDS ORDERED: ONDANSETRON INJ 2 MG/ML 2 ML VIAL ONE (13:52)
[2018-08-19] MEDS ORDERED: VANCOMYCIN HCL 1000MG/20ML VIAL ONE (13:52)
[2018-08-19] MEDS ORDERED: PHENYLEPHRINE 100MCG/ML 5ML SYR ONE (13:57)
--- NOTE | 2018-08-19 15:13 | Post Operative Brief Note ---
Immediate Post Op Note v1 Date of Surgery August 19, 2018 Pre & Post Diagnosis Operation Date: 08/19/18 12:30 Pre-Op Diagnosis: Right Knee Advanced Degenerative Joint Disease Post-Op Diagnosis: Right Knee Advanced Degenerative Joint Disease Procedure Operation Date: 08/19/18 12:30 Actual Procedures p Right Total Knee Arthroplasty(Right) - Pelon Kaiser MD Surgeon Pelon Kaiser MD [employer] Aye, PAC Estimated Blood Loss 50 Findings Consistent with Post-Op Diagnosis Fluids 550 cc Specimens Right Knee Drains Ledesma Catheter (A 16 Russian ledesma catheter was inserted by Lashonda Benson RN, without difficulty, clear yellow urine obtained, output to be monitored by Anesthesia.) Anesthesia Type Spinal MAC Complications none Disposition Accompanied Patient To Recovery: No Disposition: Recovery Room
--- NOTE | 2018-08-19 15:58 | Anesthesiology Progress Note ---
Date of Service August 19, 2018 Anesthesia Post Procedure Vital Signs Vital Signs: Temp Pulse Pulse Pulse Resp BP BP 08/19/18 15:56 36.8 C 08/19/18 15:55 77 15 08/19/18 15:51 81 19 144/78 H 08/19/18 15:50 81 21 08/19/18 15:47 79 19 08/19/18 15:46 79 18 136/80 08/19/18 15:45 80 27 H 08/19/18 15:41 76 18 142/87 H 08/19/18 15:40 77 17 08/19/18 15:36 81 21 134/89 08/19/18 15:35 79 17 08/19/18 15:31 82 17 144/86 H 08/19/18 15:30 82 17 08/19/18 15:25 88 20 144/103 H 08/19/18 15:23 37.3 C 81 83 15 130/94 130/94 08/19/18 11:14 37.1 C 88 20 174/99 H Pulse Ox 08/19/18 15:56 95 08/19/18 15:55 94 08/19/18 15:51 95 08/19/18 15:50 95 08/19/18 15:47 96 08/19/18 15:46 96 08/19/18 15:45 97 08/19/18 15:41 100 08/19/18 15:40 99 08/19/18 15:36 99 08/19/18 15:35 99 08/19/18 15:31 98 08/19/18 15:30 97 08/19/18 15:25 97 08/19/18 15:23 97 08/19/18 11:14 97 Pain Intensity Right Knee: Pain Intensity: 0 Transfer of Care Handoff Completed per policy Notes Mental Status: alert / awake / arousable Patient Amnestic to Procedure: Yes Nausea / Vomiting: adequately controlled Pain: adequately controlled Airway Patency, RR, SpO2: stable & adequate BP & HR: stable & adequate Neuraxial Anesthesia: was administered and sensory block is resolving Anesthetic Complications: no major complications apparent
--- NOTE | 2018-08-19 16:00 | XRay Report ---
RIGHT KNEE 2 VIEWS History: Right total knee arthroplasty. Degenerative arthritis. Postop. FINDINGS: The patient is status post a right total knee arthroplasty. The hardware is intact. No frac ture or dislocation. Skin jennifer are in place. IMPRESSION: Right total knee arthroplasty. No evidence for hardware complication. Electronically signed by: Felix Piper M.D. 08/19/2018 3:59 PM
[2018-08-19] MEDS ORDERED: MAGNESIUM HYDROXIDE SUSP 30 ML UDC PO PRN (16:33)
[2018-08-19] MEDS ORDERED: NALOXONE HCL 0.4 MG/1 ML VIAL/CARP IV PRN (16:33)
[2018-08-19] MEDS ORDERED: HYDROmorphone INJ 0.5 MG/0.5 ML SYR IV PRN (16:33)
[2018-08-19] MEDS ORDERED: BISACODYL 10 MG SUPP PR PRN (16:33)
[2018-08-19] MEDS ORDERED: METOCLOPRAMIDE HCL INJ 5 MG/ML 2 ML VIAL IV PRN (16:33)
[2018-08-19] MEDS ORDERED: VANCOMYCIN CONSULT ACTIVE PRN (16:33)
[2018-08-19] MEDS: KETOROLAC 30 MG/ML VIAL IV SCH ×2 (17:10→22:06)
[2018-08-19] MEDS: CHECK SCOPOLAMINE PATCH PLACEMENT SCH (17:32)
[2018-08-19] MEDS: FERROUS GLUCONATE 324 MG TAB PO SCH (18:41)
[2018-08-19] MEDS: SODIUM CHLORIDE 0.9% 1000ML 1,000 ML IV SCH (18:41)
[2018-08-19] MEDS: ASCORBIC ACID 500 MG TAB PO SCH (18:41)
[2018-08-19] MEDS: lamoTRIgine 25 MG TAB PO SCH (20:28)
[2018-08-19] MEDS: ASPIRIN 81 MG ECTAB PO SCH (20:28)
[2018-08-19] MEDS: SENNA 8.6 MG TAB PO SCH (20:28)
[2018-08-19] MEDS: DOCUSATE SODIUM 100 MG CAP PO SCH (20:28)
[2018-08-19] MEDS: LATANOPROST 0.005% OP SOLN 2.5 ML BTL OP SCH (20:29)
[2018-08-19] MEDS: TAPENTADOL HCL ER 50 MG TABCR PO SCH (20:29)
[2018-08-19] MEDS: LORazepam 0.5 MG TAB PO SCH (20:29)
[2018-08-19] MEDS: ACETAMINOPHEN 500 MG TAB PO SCH (21:00)
[2018-08-19] MEDS ORDERED: TRANEXAMIC ACID 1,000 MG in 0.9 % SODIUM CHLORIDE 100 ML IV SCH (21:15)
[2018-08-19] MEDS: VANCOMYCIN HCL 1,750 MG in SODIUM CHLORIDE 0.9% 500 ML IV SCH (22:05)
--- NOTE | 2018-08-20 00:07 | Operative Report ---
DATE OF OPERATION: 08/19/2018 SURGEON: Pelon Kaiser MD LETTER OF CREDIT CLERK: SOFI Richter PREOPERATIVE DIAGNOSIS: Right knee degenerative joint disease. POSTOPERATIVE DIAGNOSIS: Right knee degenerative joint disease. PROCEDURE PERFORMED: Right cemented posterior stabilized total knee arthroplasty. COMPLICATIONS: None. ESTIMATED BLOOD LOSS: 50 mL FLUID REPLACEMENT: 550 of crystalloid fluid replacement. TOURNIQUET TIME: 58 minutes at 300 mmHg. ANESTHESIA: Spinal with adductor block. DRAINS: None. SPECIMENS: Right knee sent for pathology. OPERATIVE INDICATIONS: The patient is a 63-year-old female who has had a long history of bilateral knee pain and discomfort that has gotten gradually worse over the past several years. He has been through extensive conservative treatment in the past. She had a left knee replacement done 10 months ago and has done remarkably well. She elected to proceed with right total knee arthroplasty. OPERATIVE FINDINGS: Operative findings were advanced right knee DJD. She had extensive grade 4 [id number] disease and eburnation of the medial compartment as well as patellofemoral compartment. She had a varus deformity to her knee with osteophytes in all 3 compartments and a large knee effusion. OPERATIVE IMPLANTS: Operative implants consisted of, 1. Biomet Vanguard size 60 right posterior stabilized femoral component. 2. Biomet size 63 tibial tray. 3. A 12 mm posterior stabilized polyethylene insert. 4. A 25 x 8 all poly patella. OPERATIVE PROCEDURE: The patient was taken to the Operating Room, identified and placed in the operating table in supine position. All contact areas were appropriately padded. IV antibiotics were provided by the anesthesia team. A spinal anesthetic and adductor canal block had been provided in the holding area. Arthur catheter was placed in sterile fashion. Right thigh tourniquet was placed. The right lower extremity was prepped and draped in usual sterile fashion. The right leg was elevated and exsanguinated with Esmarch and tourniquet was placed at 300 mmHg. An anterior approach of the right knee was then performed through a longitudinal incision centered over the patella. Sharp dissection was carried through subcutaneous tissues down to the level of the extensor mechanism. Medial parapatellar arthrotomy incision was made and subperiosteal dissection was carried out medially. The fat pad resected from beneath the patellar tendon. The lateral patellofemoral ligament was released. The patella was everted and knee was flexed. The osteophytes were taken off the distal femur. The ACL and PCL were then released from the distal femur. The tibia subluxated anteriorly. The external tibial alignment jig was then placed in the anterior face of the tibia and adjusted 14 mm medially. Proximal tibial cut was made to remove about a millimeter of bone from the most deficient aspect of the medial tibial plateau. It was sized to a size 63. Attention was turned to the femur. The distal femur was entered with a sharp drill bit. The intramedullary canal was suctioned. A distal femoral cut was made to take an additional 3 mm of bone off the distal femur. Femur was then sized to a size 60. We downsized this just slightly. The AP cutting block was pinned parallel to the epicondylar axis, which was 3 degrees of external rotation. The anterior cut, anterior chamfer cut, posterior cut, posterior chamfer cuts were made. The box guide was placed and adjusted slightly laterally and the box cut was made. The knee was flexed. The remnants of the medial and lateral menisci were excised. The osteophytes were taken off the posterior aspect of the femur. A trial femoral component was placed. The tibial tray was pinned in maximum external rotation and drill and stem punch were used to create a defect from the proximal tibia for the tibial tray. The knee was then trialed and the 12 mm insert fit most appropriately. Attention was then drawn to the patella. Patella was quite small. The patella thickness measured 20 mm and was cut down to 12. It was sized to a size 45 patella. Lug holes were drilled for a 25 patella. Lateral osteophytes were removed. Patella button was placed. Knee was taken through range of motion and patella tracked nicely with no thumbs test. Attention was then drawn toward placement of permanent components. All trial components removed. A bone plug was placed in the distal femur to limit blood loss. A double batch of Palacos G cement was mixed. A Biomet Vanguard size 60 right posterior stabilized femoral component, size 63 tibial tray, 12 mm posterior stabilized polyethylene insert, 25 x 8 all poly patella then cemented in place. Knee was brought out into full extension until cement hardened. A final cement check was then performed. Pericapsular tissues were injected with a total of 100 mL of a combination of 20 mL of Exparel, 30 mL of normal saline, 50 mL of 0.25% Marcaine with epinephrine. The patient did receive 1 gram of tranexamic acid. The tourniquet was then let down for a final tourniquet time of 58 minutes. Hemostasis was assured with use of electrocautery. Extensor mechanism was then closed with a combination of #1 PDS suture and #1 Vicryl suture in a [id number] fashion. Extensor mechanism was checked and found to be intact and the subcutaneous tissue was then closed with #2 Dexon suture in a buried interrupted fashion. The skin was closed with skin jennifer. Leg was then cleaned, dried and a sterile dressing of Xeroform, 4 x 4's, sterile cast padding, and Anthony bandage were applied. The patient was then transferred to the Recovery Room in stable condition. The patient tolerated the procedure well with no complication. All needle and sponge counts were correct at the end of the operation. I attest to the content of the Intraoperative Record and any orders documented therein. Any exceptions are noted below. CHANELL
[2018-08-20] MEDS: CHECK SCOPOLAMINE PATCH PLACEMENT SCH (00:40)
[2018-08-20] MEDS: ACETAMINOPHEN 500 MG TAB PO SCH ×3 (05:29→21:39)
[2018-08-20] MEDS: LEVOTHYROXINE SODIUM 125 MCG TABLET PO SCH (05:29)
[2018-08-20] MEDS: KETOROLAC 30 MG/ML VIAL IV SCH ×4 (05:29→22:33)
[2018-08-20] MEDS: SODIUM CHLORIDE 0.9% 1000ML 1,000 ML IV SCH (05:42)
[2018-08-20 06:42] LABS: Hematocrit (blood only) 34.8 % (37-47); Hemoglobin 11.7 g/dL (12.0-16.0); Mean Corpuscular Hgb Conc 33.6 g/dL (32-36); Mean Corpuscular Volume 85.5 fL (80-100); Mean Platelet Volume 9.4 fL (7.4-10.4); Platelet Count 203 K/uL (130-400); RDW Coefficient of Variation 13.8 % (11.5-14.5); RDW Standard Deviation 43.2 fL (36.4-46.3); Red Blood Count 4.07 M/uL (4.2-5.4); White Blood Count 7.49 K/uL (4.8-10.8)
[2018-08-20 07:06] LABS: BUN Creatinine Ratio 22.6 (10-20); Calcium 8.4 mg/dl (8.5-10.1); Creatinine Clr Calc Pharmacy 85.5 ml/min; Est GFR (African American) 95.1; Est GFR (Non-African American) 82.1; Potassium 3.8 mmol/L (3.5-5.1)
[2018-08-20] MEDS: LORazepam 0.5 MG TAB PO SCH ×2 (08:56→21:38)
[2018-08-20] MEDS: TAPENTADOL HCL ER 50 MG TABCR PO SCH ×2 (08:56→21:38)
[2018-08-20] MEDS: FERROUS GLUCONATE 324 MG TAB PO SCH ×2 (08:56→18:17)
[2018-08-20] MEDS: CITALOPRAM 40 MG TAB PO SCH (08:57)
[2018-08-20] MEDS: ASCORBIC ACID 500 MG TAB PO SCH ×2 (08:57→18:17)
[2018-08-20] MEDS: ASPIRIN 81 MG ECTAB PO SCH ×2 (08:58→21:38)
[2018-08-20] MEDS: DOCUSATE SODIUM 100 MG CAP PO SCH ×2 (08:58→21:38)
[2018-08-20] MEDS: lamoTRIgine 25 MG TAB PO SCH ×2 (08:59→21:38)
[2018-08-20] MEDS: MULTIVITAMIN TAB PO SCH (09:00)
[2018-08-20] MEDS: TIMOLOL MALEATE 0.25% OP SOLN 5 ML BTL OP SCH (09:00)
[2018-08-20] MEDS ORDERED: NON-FORMULARY MEDICATION (Multivitamin 1 TAB) PO SCH (09:00)
[2018-08-20] MEDS: TOCOPHERYL, DL-ALPHA 400 UNITS CAP PO SCH (09:00)
[2018-08-20] MEDS: VANCOMYCIN HCL 1,750 MG in SODIUM CHLORIDE 0.9% 500 ML IV SCH (10:51)
[2018-08-20] MEDS: [UNRECOGNIZED DRUG - OTHER] NAE SCH (11:47)
[2018-08-20] MEDS: OXYCODONE HCL IR 5 MG TAB (IMMEDIATE RELEASE) PO PRN ×2 (14:13→20:13)
--- NOTE | 2018-08-20 17:15 | Progress Note ---
DATE: 08/20/2018 SUBJECTIVE: A 63-year-old white female postop day 1 from right knee replacement. She is doing pretty well. Some pain, but controlled. No chest pain or shortness of breath. Not feeling dizzy or lightheaded. OBJECTIVE: VITAL SIGNS: Temperature 36.6. Vital signs stable. GENERAL: Reveals a pleasant, middle-aged female. She is in bed and looks reasonably comfortable. EXTREMITIES: Examination of the right leg reveals the leg to be well aligned. She can dorsiflex and plantarflex her foot appropriately. NEUROLOGICAL: She is neurologically intact. LABORATORY DATA: Hemoglobin is 11.7. Hematocrit 34.8. Electrolytes are stable. ASSESSMENT: A 63-year-old white female postop day 1 from right knee replacement, doing pretty well. Pain is controlled. She is neurologically intact. PLAN: 1. DVT prophylaxis including thigh-high TEDs, SCDs, and aspirin twice a day. 2. PT/OT. She can weightbear as tolerated. Right total knee protocol. 3. Pain control. Doing reasonably well with current pain regimen. 4. Disposition: She is hoping to be discharged to a rehab. Social Service is working on this.
[2018-08-20] MEDS: LATANOPROST 0.005% OP SOLN 2.5 ML BTL OP SCH (21:39)
[2018-08-20] MEDS: SENNA 8.6 MG TAB PO SCH (21:39)
[2018-08-21] MEDS: KETOROLAC 30 MG/ML VIAL IV SCH ×2 (06:01→11:42)
[2018-08-21] MEDS: LEVOTHYROXINE SODIUM 125 MCG TABLET PO SCH (06:02)
[2018-08-21] MEDS: ACETAMINOPHEN 500 MG TAB PO SCH ×3 (06:41→21:23)
[2018-08-21] MEDS: LORazepam 0.5 MG TAB PO SCH ×2 (07:47→21:23)
[2018-08-21] MEDS: FERROUS GLUCONATE 324 MG TAB PO SCH ×2 (07:49→17:38)
[2018-08-21] MEDS: MULTIVITAMIN TAB PO SCH (07:49)
[2018-08-21] MEDS: DOCUSATE SODIUM 100 MG CAP PO SCH ×2 (07:49→20:17)
[2018-08-21] MEDS: lamoTRIgine 25 MG TAB PO SCH ×2 (07:49→20:17)
[2018-08-21] MEDS: [UNRECOGNIZED DRUG - OTHER] NAE SCH (07:49)
[2018-08-21] MEDS: TOCOPHERYL, DL-ALPHA 400 UNITS CAP PO SCH (07:49)
[2018-08-21] MEDS: CITALOPRAM 40 MG TAB PO SCH (07:49)
[2018-08-21] MEDS: ASPIRIN 81 MG ECTAB PO SCH ×2 (07:49→20:17)
[2018-08-21] MEDS: ASCORBIC ACID 500 MG TAB PO SCH ×2 (07:49→17:38)
[2018-08-21] MEDS: TIMOLOL MALEATE 0.25% OP SOLN 5 ML BTL OP SCH (07:50)
[2018-08-21] MEDS: TAPENTADOL HCL ER 50 MG TABCR PO SCH ×2 (07:56→20:17)
[2018-08-21] MEDS: OXYCODONE HCL IR 5 MG TAB (IMMEDIATE RELEASE) PO PRN ×2 (07:56→20:18)
--- NOTE | 2018-08-21 08:45 | Progress Note ---
DATE: 08/21/2018 SUBJECTIVE: A 63-year-old white female postop day 2 from a right knee replacement. She is doing pretty well. Rates her pain at 5. Doing well with pain medicines. No chest pain or shortness of breath. Not feeling dizzy or lightheaded. OBJECTIVE: VITAL SIGNS: Temperature is 36.8. Vital signs stable. GENERAL: Physical examination shows a pleasant, middle-aged female. She is sitting up at her bedside chair and looks comfortable. EXTREMITIES: Examination of the right leg reveals the dressing to be clean, dry and intact. Calf is soft and supple. She can dorsiflex and plantarflex her foot appropriately. She is neurologically intact. ASSESSMENT: A 63-year-old white female postop day 2 from right knee replacement, doing well. Pain is controlled. She is neurologically intact. PLAN: 1. DVT prophylaxis including thigh-high TEDs, SCDs, and aspirin twice a day. 2. PT/OT. Weight bear as tolerated. Right total knee protocol. 3. Pain control, doing well with current pain regimen. 4. Disposition: She is planning to be discharged to a half-way facility in the [facility]. They have a bed available Saturday.
[2018-08-21] MEDS ORDERED: [UNRECOGNIZED DRUG - OTHER] NAE SCH (09:00)
[2018-08-21] MEDS: ALUMINUM/MAGNESIUM SUSP 30 ML UDC PO PRN (13:57)
[2018-08-21] MEDS: SENNA 8.6 MG TAB PO SCH (20:17)
[2018-08-21] MEDS: LATANOPROST 0.005% OP SOLN 2.5 ML BTL OP SCH (20:18)
[2018-08-22] MEDS: OXYCODONE HCL IR 5 MG TAB (IMMEDIATE RELEASE) PO PRN ×3 (00:43→13:27)
[2018-08-22] MEDS: ALUMINUM/MAGNESIUM SUSP 30 ML UDC PO PRN (04:18)
[2018-08-22] MEDS: ACETAMINOPHEN 500 MG TAB PO SCH ×2 (05:20→14:09)
[2018-08-22] MEDS: LEVOTHYROXINE SODIUM 125 MCG TABLET PO SCH (06:21)
[2018-08-22] MEDS: DOCUSATE SODIUM 100 MG CAP PO SCH (07:20)
[2018-08-22] MEDS: MULTIVITAMIN TAB PO SCH (07:20)
[2018-08-22] MEDS: ASCORBIC ACID 500 MG TAB PO SCH (07:20)
[2018-08-22] MEDS: CITALOPRAM 40 MG TAB PO SCH (07:20)
[2018-08-22] MEDS: lamoTRIgine 25 MG TAB PO SCH (07:20)
[2018-08-22] MEDS: TOCOPHERYL, DL-ALPHA 400 UNITS CAP PO SCH (07:21)
[2018-08-22] MEDS: [UNRECOGNIZED DRUG - OTHER] NAE SCH (07:21)
[2018-08-22] MEDS: TAPENTADOL HCL ER 50 MG TABCR PO SCH (07:21)
[2018-08-22] MEDS: ASPIRIN 81 MG ECTAB PO SCH (07:21)
[2018-08-22] MEDS: FERROUS GLUCONATE 324 MG TAB PO SCH (07:21)
[2018-08-22] MEDS: TIMOLOL MALEATE 0.25% OP SOLN 5 ML BTL OP SCH (07:22)
[2018-08-22] MEDS: LORazepam 0.5 MG TAB PO SCH (07:22)
--- NOTE | 2018-08-22 09:08 | Progress Note ---
DATE: 08/22/2018 SUBJECTIVE: A 63-year-old white female postop day 3 from right knee replacement, doing pretty well. Pain has been controlled. No chest pain or shortness of breath. Not feeling dizzy or lightheaded. OBJECTIVE: VITAL SIGNS: Temperature is 36.7. Vital signs stable. GENERAL: Physical examination shows a pleasant, middle-aged female. She is sitting up in her bedside with her legs dangling over the edge doing some therapy. EXTREMITIES: Examination of the right knee reveals incision to be clean and intact, just slight bit of drainage mostly around the staple sites. There is a little bit of bruising. She can flex and extend her toes appropriately. She is neurologically intact. ASSESSMENT: A 63-year-old white female postop day 3 from right knee replacement, doing pretty well. Pain is controlled. She is neurologically intact. PLAN: 1. DVT prophylaxis including thigh-high TEDs, SCDs, and aspirin twice a day. 2. PT/OT. Weight bear as tolerated. Right total knee protocol. 3. Pain control, doing okay with current pain regimen. 4. Disposition: Plan to discharge to intermediate facility later today.
--- NOTE | 2018-08-27 09:16 | Discharge Summary ---
ADMITTING PHYSICIAN AND SURGEON: Pelon Kaiser MD ADMITTING DIAGNOSIS: Right knee degenerative joint disease. SURGERY PERFORMED: Right total knee arthroplasty. SECONDARY DIAGNOSES: Sleep apnea, anxiety, depression, hypothyroidism, chronic anemia, low back pain, obesity, chronic obstructive pulmonary disease, elevated cholesterol. CONSULTS: None obtained. HISTORY AND PHYSICAL EXAMINATION: Well documented in the patient's chart. HOSPITAL COURSE: The patient was admitted on 08/19/2018, underwent total knee arthroplasty, tolerated the procedure well. There were no complications. She was transferred to the PACU postoperatively and later to the orthopedic floor for further care. She was given vancomycin for antibiotic prophylaxis, HENRY stockings, SCDs and aspirin for DVT prophylaxis. Hemoglobin, hematocrit and vital signs were monitored during her hospital stay and remained stable. She did not require any blood transfusions. There were no complications. By postoperative day 3, she was tolerating a regular diet, pain was controlled with oral pain medicine. She was participating in physical therapy. On postop day 3, she was transferred to detention facility. She was given printed discharge instructions including new prescriptions for extra-strength Tylenol, aspirin, and oxycodone. Continue her home medicines. Continue physical therapy, weightbearing as tolerated, HENRY stockings. Follow up approximately 2 weeks postop or sooner if there are any problems or concerns.
== END 2018-08-22 15:21 | DRG 470 ==
LOC: ASU 10:08 → 3E 15:18

== ENCOUNTER 2019-07-23 12:49 | Inpatient (IN) ==
--- NOTE | 2019-07-23 13:14 | Emergency Department Note ---
Impression & Plan Homicidal ideations, Mood disorder, Buttock pain ED Provider Note Provider: Elliot Nguyen MD DATE OF SERVICE: 07/23/2019 CHIEF COMPLAINT: Mental health evaluation HISTORY OF PRESENT ILLNESS: Patient is a 64-year-old female with a history of arthritis, anxiety, depression, hypothyroidism, sleep apnea, COPD presenting today via ambulance for homicidal thoughts. Patient was at her psychiatrist today, sent clear, and referred here. Patient states given the virus social stress at home she has become much more angry. States she has begun to have some thoughts of wanting to harm people. Patient states she is had thoughts of using 1 of her 's guns to shoot him, other family members, and her dog. Patient denies any suicidal thoughts. Patient is highly anxious. Patient states she has been taking her medications including Celexa, Lamictal, and Ativan. Patient states her sleep is been disturbed. Patient denies fever, chest pain, or abdominal pain. Patient does states she is on oxygen at night for her sleep apnea. Patient does states several weeks ago she did have a walke r and fell backward landing on her buttocks. Does complain of some mild to moderate buttock pain. REVIEW OF SYSTEMS: A total of 10 review of systems was obtained and negative except as stated above in the HPI. PAST MEDICAL HISTORY: As noted above MEDICATIONS: Reviewed and includes oxygen at night. SOCIAL HISTORY: and lives with PHYSICAL EXAM: GENERAL: alert and oriented sitting on the stretcher anxious and tearful Head: normocephalic and atraumatic EYES: No injection, discharge or icterus. ENT: Mucous membranes pink and moist. LUNGS: Airway patent. No retractions. Breath sounds clear. HEART: Regular rate and rhythm. No chest wall tenderness ABDOMEN: Soft and non-tender, without guarding or rebound. SKIN: Acyanotic, warm, dry, without rashes NEUROLOGICAL: No focal deficits. No aphasia. No facial droop or slurred speech. Ambulatory with wheeled walker Psych: Denies SI. Endorses homicidal ideation for using a gun against and family members. Somewhat tangential. Crying and anxious. Patient's hypertension was referred to PCP HOSPITAL COURSE: 1300 Patient was first seen and H&P performed. 1500 Patient reassessed and updated. Resting in bed quietly. 1542 patient accepted by [facility] further inpatient care. Patient's laboratory studies and imaging reviewed. Differential includes Mood disorder, infection, hypoglycemia, electrolyte abnormalities, cardiac sources, intracerebral event, toxicologic, trauma, neurologic, as well as other pathologies. IMPRESSION/MEDICAL DECISION MAKING: Basic labs obtained. X-ray of the pelvis obtained without significant traumatic injury. Minor fall several weeks ago and states she has discussed with ortho pedics office. Likely musculoskeletal and given a dose of tylenol. Believe she can follow-up as an outpatient with them in the future for this. Do not believe any additional cervical spine, spine, or head imaging are needed at this time. Medically cleared. Patient is anxious and tearful. Referred from psychiatrist and continues to wear similar things to us she told them per their report and they are available note that she has had some homicidal ideations. Has a plan. No SI reported. Seen conjunction with psychiatric rn field case manager. Patient requesting voluntary inpatient treatment. Believes she needs inpatient psychiatric treatment. Bed search was initiated and somewhat difficult s econdary to her use of a wheeled walker and nightly oxygen usage. Patient accepted by [facility] on a voluntary 201 for treatment of her psychiatric conditions. DIAGNOSIS: Homicidal ideations, mood disorder, buttock pain DISPOSITION: Transfer to inpatient psychiatric facility Past Med/Surg History Medical History (Updated 07/23/19 @ 14:53 by Elliot Nguyen M.D.) Anemia Anxiety Chronic back pain Depression Diverticulosis Fatty (change of) liver, not elsewhere classified Hx of deep venous thrombosis 1989 Hx of glaucoma (Acute) both eyes Hypothyroidism R/T RADIOACTIVE IODINE Migraine Obesity, morbid, BMI 40.0-49.9 Osteoarthritis Post traumatic stress disorder Prediabetes Psoriasis Sleep apnea CPAP Surgical History History of total knee replacement LEFT Hx laparoscopic cholecystectomy Hx of colonoscopy Hx of dilation and curettage Hx of hysterectomy Hx of lumpectomy RIGHT BREAST X2 LUMPS Hx of wisdom tooth extraction Nausea and vomiting after administration of anesthetic agent Social History Preferred Language: Montenegrin Communication Ability: Effective Server Required: No Beliefs That Will Affect Care: None marital status: Current Living Situation: Spouse Feels Safe at Home: Yes Smoking Status: Unknown if ever smoked Hx Alcohol Use: No Hx Substance Use: No Allergies Allergies Allergy/AdvReac Type Severity Reaction Status Date / Time baclofen Allergy Severe Chest Pain Verified 07/23/19 13:41 cefprozil Allergy Severe FACE Verified 07/23/19 13:41 TURNED BLUE, WENT TO ER. naproxen Allergy Mild UMBILICAL Verified 07/23/19 13:41 RASH Home Meds Home Medications Medication Instructions Recorded Confirmed citalopram 40 mg PO QAM #0 11/21/14 07/23/19 lamotrigine [Lamictal] 50 mg PO QAM #0 tab 11/21/14 07/23/19 levothyroxine 125 mcg PO QAM #0 tab 11/21/14 07/23/19 lorazepam 0.25 mg PO HS #0 tab 11/21/14 07/23/19 latanoprost 1 drp OPB PM #0 04/14/17 07/23/19 multivitamin 2 tab PO QAM #0 09/24/17 07/23/19 timolol maleate 1 drp OPB QAM 08/12/18 07/23/19 [place] Saline 1 applic INTRANASAL HS 08/19/18 07/23/19 emollient 1 ea TOPICAL QAM PRN 07/23/19 07/23/19 lamotrigine [Lamictal] 75 mg PO HS 07/23/19 07/23/19 meclizine [Motion Relief 25 mg PO TID PRN 07/23/19 07/23/19 (meclizine)] Results & Data (ED) Vital Signs Vital Signs - 24 hr 07/23/19 12:51 07/23/19 14:27 Temperature 36.8 C Temperature Source Oral Pulse Rate 87 Pulse Rate [Finger] 88 Respiratory Rate 20 20 Respiratory Effort / Characteristics Non-Labored Spontaneous Non-Labored Spontaneous Respiratory Depth Normal Normal Respiratory Pattern Regular Blood Pressure 176/80 H Blood Pressure [Right Arm] 135/58 L Blood Pressure Mean 112 Blood Pressure Mean [Right Arm] 83 Blood Pressure Position Lying Blood Pressure Position [Right Arm] Sitting Pulse Oximetry 92 94 Oxygen Delivery Method Room Air Room Air Sepsis Recent Fever Within 48 Hours No Sepsis Action Taken by Nursing No Action Required Laboratory Data Result diagrams: 07/23/19 13:38 07/23/19 13:38 Lab Results 07/23/19 07/23/19 07/23/19 Range/Units 13:20 13:20 13:38 WBC 5.51 (4.8-10.8) K/uL RBC 4.89 (4.2-5.4) M/uL Hgb 14.2 (12.0-16.0) g/dL Hct 43.5 (37-47) % MCV 89.0 (80-100) fL MCH 29.0 (25-34) pg MCHC 32.6 (32-36) g/dL RDW Std Deviation 46.0 (36.4-46.3) fL RDW Coeff of Jeanine 14.2 (11.5-14.5) % Plt Count 278 (130-400) K/uL MPV 9.2 (7.4-10.4) fL Immature Gran % (Auto) 0.2 % Neut % (Auto) 78.6 % Lymph % (Auto) 14.3 % Smyth % (Auto) 6.9 % Eos % (Auto) 0.0 % Baso % (Auto) 0.0 % Immature Gran # (Auto) 0.01 (0.00-0.02) K/uL Neut # (Auto) 4.33 (1.4-6.5) K/uL Lymph # (Auto) 0.79 L (1.2-3.4) K/uL Smyth # (Auto) 0.38 (0.11-0.59) K/uL Eos # (Auto) 0.00 (0-0.5) K/uL Baso # (Auto) 0.00 (0-0.2) K/uL Sodium (136-145) mmol/L Potassium (3.5-5.1) mmol/L Chloride (98-107) mmol/L Carbon Dioxide (21-32) mmol/L Anion Gap (3-11) BUN (7-18) mg/dl Creatinine (0.6-1.2) mg/dl Est Cr Clr Drug Dosing ml/min Est GFR ( Amer) Est GFR (Non-Af Amer) BUN/Creatinine Ratio (10-20) Glucose (70-99) mg/dl Calcium (8.5-10.1) mg/dl Total Bilirubin (0.2-1) mg/dl AST (15-37) U/L ALT (12-78) U/L Alkaline Phosphatase (45-117) U/L Total Protein (6.4-8.2) gm/dl Albumin (3.4-5.0) gm/dl Globulin (2.5-4.0) gm/dl Albumin/Globulin Ratio (0.9-2) TSH (0.300-4.500) uIu/ml Urine Color Yellow Urine Appearance Clear (Clear) Urine pH 6.5 (4.5-7.5) Ur Specific Dunn 1.008 (1.000-1.030) Urine Protein Negative (Negative) Urine Glucose (UA) Negative (Negative) Urine Ketones Negative (Negative) Urine Blood Negative (Negative) Urine Nitrite Negative (Negative) Urine Bilirubin Negative (Negative) Urine Urobilinogen Negative (Negative) Ur Leukocyte Esterase Negative (Negative) Salicylates (2.8-20) mg/dl Urine Opiates Screen Neg (Neg) Ur Methadone, Qual Neg (Neg) Acetaminophen (10-30) ug/ml Urine Barbiturates Neg (Neg) Ur Phencyclidine (PCP) Neg (Neg) U Amphetamin/Meth Scrn Neg (Neg) MDMA (Ecstasy) Screen Neg (Neg) U Benzodiazepines Scrn Neg (Neg) Ur Cocaine Metabolite Neg (Neg) U Marijuana (THC) Screen Neg (Neg) Ethyl Alcohol mg/dL (0-3) mg/dl 07/23/19 07/23/19 07/23/19 Range/Units 13:38 13:38 13:38 WBC (4.8-10.8) K/uL RBC (4.2-5.4) M/uL Hgb (12.0-16.0) g/dL Hct (37-47) % MCV (80-100) fL MCH (25-34) pg MCHC (32-36) g/dL RDW Std Deviation (36.4-46.3) fL RDW Coeff of Jeanine (11.5-14.5) % Plt Count (130-400) K/uL MPV (7.4-10.4) fL Immature Gran % (Auto) % Neut % (Auto) % Lymph % (Auto) % Smyth % (Auto) % Eos % (Auto) % Baso % (Auto) % Immature Gran # (Auto) (0.00-0.02) K/uL Neut # (Auto) (1.4-6.5) K/uL Lymph # (Auto) (1.2-3.4) K/uL Smyth # (Auto) (0.11-0.59) K/uL Eos # (Auto) (0-0.5) K/uL Baso # (Auto) (0-0.2) K/uL Sodium 138 (136-145) mmol/L Potassium 4.1 (3.5-5.1) mmol/L Chloride 103 (98-107) mmol/L Carbon Dioxide 29 (21-32) mmol/L Anion Gap 6.0 (3-11) BUN 17 (7-18) mg/dl Creatinine 0.82 (0.6-1.2) mg/dl Est Cr Clr Drug Dosing 78.7 ml/min Est GFR ( Amer) 88.9 Est GFR (Non-Af Amer) 76.7 BUN/Creatinine Ratio 21.0 H (10-20) Glucose 110 H (70-99) mg/dl Calcium 9.2 (8.5-10.1) mg/dl Total Bilirubin 0.6 (0.2-1) mg/dl AST 18 (15-37) U/L ALT 26 (12-78) U/L Alkaline Phosphatase 73 (45-117) U/L Total Protein 7.9 (6.4-8.2) gm/dl Albumin 3.7 (3.4-5.0) gm/dl Globulin 4.2 H (2.5-4.0) gm/dl Albumin/Globulin Ratio 0.9 (0.9-2) TSH 0.346 (0.300-4.500) uIu/ml Urine Color Urine Appearance (Clear) Urine pH (4.5-7.5) Ur Specific Dunn (1.000-1.030) Urine Protein (Negative) Urine Glucose (UA) (Negative) Urine Ketones (Negative) Urine Blood (Negative) Urine Nitrite (Negative) Urine Bilirubin (Negative) Urine Urobilinogen (Negative) Ur Leukocyte Esterase (Negative) Salicylates < 1.7 L (2.8-20) mg/dl Urine Opiates Screen (Neg) Ur Methadone, Qual (Neg) Acetaminophen < 2 L (10-30) ug/ml Urine Barbiturates (Neg) Ur Phencyclidine (PCP) (Neg) U Amphetamin/Meth Scrn (Neg) MDMA (Ecstasy) Screen (Neg) U Benzodiazepines Scrn (Neg) Ur Cocaine Metabolite (Neg) U Marijuana (THC) Screen (Neg) Ethyl Alcohol mg/dL < 3.0 (0-3) mg/dl Administered Medications Discontinued Medications Acetaminophen (Tylenol) 1,000 mg PO NOW STA Stop: 07/23/19 14:53 Last Admin: 07/23/19 15:05 Dose: 1,000 mg Documented by: [id number] Discharge Plan Visit Data Chief Complaint: Mental Health Evaluation Stated Complaint: mhid ED Provider: Elliot Nguyen Discharge Problem: Homicidal ideations, Mood disorder, Buttock pain
[2019-07-23 13:33] LABS: Appearance Urine Clear (Clear); Bilirubin Urine Negative (Negative); Blood Urine Negative (Negative); Color Urine Yellow; Glucose Urine UA Negative (Negative); Ketones Urine Negative (Negative); Leukocyte Esterase Urine Negative (Negative); Nitrite Urine Negative (Negative); Protein Urine Negative (Negative); Specific Gravity Urine 1.008 (1.000-1.030); Urobilinogen Urine Negative (Negative); pH Urine 6.5 (4.5-7.5)
[2019-07-23 13:54] LABS: Hematocrit (blood only) 43.5 % (37-47); Hemoglobin 14.2 g/dL (12.0-16.0); Immature Granulocytes # (auto) 0.01 K/uL (0.00-0.02); Immature Granulocytes % (auto) 0.2 %; Lymphocytes # (auto) 0.79 K/uL (1.2-3.4); Lymphocytes % (auto) 14.3 %; Mean Corpuscular Hgb Conc 32.6 g/dL (32-36); Mean Platelet Volume 9.2 fL (7.4-10.4); Monocytes # (auto) 0.38 K/uL (0.11-0.59); Monocytes % (auto) 6.9 %; Neutrophils # (auto) 4.33 K/uL (1.4-6.5); Neutrophils % (auto) 78.6 %; Platelet Count 278 K/uL (130-400); RDW Coefficient of Variation 14.2 % (11.5-14.5); Red Blood Count 4.89 M/uL (4.2-5.4); White Blood Count 5.51 K/uL (4.8-10.8)
[2019-07-23 14:21] LABS: Albumin Globulin Ratio 0.9 (0.9-2); Albumin Level 3.7 gm/dl (3.4-5.0); Bilirubin,Total 0.6 mg/dl (0.2-1); Calcium 9.2 mg/dl (8.5-10.1); Creatinine Clr Calc Pharmacy 78.7 ml/min; Est GFR (African American) 88.9; Est GFR (Non-African American) 76.7; Globulin 4.2 gm/dl (2.5-4.0); Potassium 4.1 mmol/L (3.5-5.1); Total Protein 7.9 gm/dl (6.4-8.2)
[2019-07-23 14:28] LABS: Amphetamines+Metham, Urine Neg (Neg); Barbiturates, Urine Neg (Neg); Benzodiazepine, Urine Neg (Neg); Cocaine, Urine Neg (Neg); MDMA (Ecstacy), Urine Neg (Neg); Methadone, Urine Neg (Neg); Opiate, Urine Neg (Neg); Phencyclidine, Urine Neg (Neg)
[2019-07-23 14:32] LABS: Acetaminophen < 2 ug/ml (10-30); Salicylate < 1.7 mg/dl (2.8-20); Thyroid Stimulating Hormone 0.346 uIu/ml (0.300-4.500)
--- NOTE | 2019-07-23 14:35 | XRay Report ---
AP PELVIS ONE VIEW HISTORY: tail bone pain, fall COMPARISON: None. FINDINGS: There is no fracture or dislocation. Soft tissues are unremarkable. No radiopaque foreign b odies. The sacrum appears intact. IMPRESSION: No fracture within the pelvis or hips. ACT 112: Negative or not required by law. Electronically signed by: Felix Piper M.D. 07/23/2019 2:34 PM
[2019-07-23] MEDS ORDERED: ACETAMINOPHEN 500 MG TAB PO STA (14:52)
[2019-07-23] MEDS ORDERED: ALUMINUM/MAGNESIUM SUSP 30 ML UDC PO PRN (15:37)
[2019-07-23] MEDS ORDERED: MAGNESIUM HYDROXIDE SUSP 30 ML UDC PO PRN (15:37)
[2019-07-23] MEDS ORDERED: BISMUTH SUBSALICYLATE PER ML OMNICELL CHARGE PO PRN (15:37)
[2019-07-23] MEDS ORDERED: SODIUM CHLORIDE 0.65% NA SOLN 45 ML (OCEAN) PRN (15:37)
[2019-07-23] MEDS: lamoTRIgine 25 MG TAB PO SCH (21:19)
[2019-07-23] MEDS: LATANOPROST 0.005% OP SOLN 2.5 ML BTL OP SCH (21:19)
[2019-07-23] MEDS: ACETAMINOPHEN 325 MG TAB PO PRN (23:25)
[2019-07-24] MEDS ORDERED: MECLIZINE HCL 25 MG TAB PO PRN (08:54)
[2019-07-24] MEDS ORDERED: ARTIFICIAL TEARS OP PRN (09:16)
[2019-07-24] MEDS: LORazepam 0.5 MG TAB PO SCH ×3 (09:24→21:39)
[2019-07-24] MEDS: LEVOTHYROXINE SODIUM 125 MCG TABLET PO SCH (09:25)
[2019-07-24] MEDS: MULTIVITAMIN TAB PO SCH (09:25)
[2019-07-24] MEDS: CITALOPRAM 40 MG TAB PO SCH (09:26)
[2019-07-24] MEDS: lamoTRIgine 25 MG TAB PO SCH ×2 (09:26→21:38)
[2019-07-24] MEDS: TIMOLOL MALEATE 0.25% OP SOLN 5 ML BTL OPB SCH ×2 (09:26→21:40)
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
[2019-07-24] MEDS: ACETAMINOPHEN 325 MG TAB PO PRN (12:36)
[2019-07-24] MEDS: LATANOPROST 0.005% OP SOLN 2.5 ML BTL OP SCH (22:49)
[2019-07-25] MEDS: MULTIVITAMIN TAB PO SCH (08:49)
[2019-07-25] MEDS: LEVOTHYROXINE SODIUM 125 MCG TABLET PO SCH (08:49)
[2019-07-25] MEDS: CITALOPRAM 40 MG TAB PO SCH (08:49)
[2019-07-25] MEDS: lamoTRIgine 25 MG TAB PO SCH ×2 (08:49→21:08)
--- NOTE | 2019-07-25 11:56 | Psychiatric Progress Note ---
Date of Service July 25, 2019 Impression / Recommendations Impression This 64-year-old woman presents with known diagnoses of major depressive disorder, recurrent, without psychotic features; generalized anxiety disorder; and PTSD. She was admitted through the emergency department after she told her outpatient psychotherapist that she had had thoughts of shooting her , her daughter, and her new [id number] the therapist was unable to execute her duty to warn because she was unable to reach the patient's . (The evidently was little or no concern regarding the daughter and son-in-law given that the patient's daughter and son-in-law are currently in the state of [place] and the patient voices no plan to travel to [place]. Her symptoms of depression include depressed mood, crying spells, apathy, anhedonia, anergia, poor concentration and fatigue. However, she reports that she does not feel that she has been particularly depressed recentlyother than possibly yesterday. She does not have a history of sammy or hypomania. The patient reports that, usual ly, her psychiatric medications work "really good," but she has been somewhat overwhelmed by the manner in which her often treats her. She describes his manner as being disrespectful, dismissive, and abrupt. And she notes that yesterday was a particularly bad day regarding this behavior on the part of her . She is angry at her younger daughter and son-in-law because they had planned to in [place] in a traditional wedding with the families of both the bride and groom invited. Instead, they chose to "elope" to [place], and neither the patient nor her were invitedalthough, evidently, the patient's older daughter was invited. One of the concerns is the fact that the patient makes it clear that there are number of firearms located in the home that she shares with her . The patient's report is that these firearms are not secured. Of note, within this context, is the fact that the patient tells us that she does not have any homicidal intent, even though she does acknowledge that she has had fleeting thoughts of shooting her and even her daughter and son-in-law when ruminating about her feelings of being disrespected and discarded. She clarifies that she understands that murder is wrong, inconsistent with Zoroastrian teaching, and she has that it is something that she would never actually do. While, we feel fairly confident the patient is not actively homicidal and that her long-term risk for homicide is quite low, under the circumstances we do want to advise the patient's family that the patient has had thoughts of homicide involving them. We also want to secure a promise on the part of the patient's to secure the firearms in their home. Reviewed per admitting physician. (1) Homicidal ideations: 07/24/2019 -The patient has been admitted to the locked behavioral health unit and is being closely observed. She is not considered to be a risk for homicide on the unit as her homicidal thoughts were specific to family members. -Today, the patient reports that her thoughts of homicide were fairly acute yesterday, but have essentially resolved. She also convincingly tells us that the thoughts of homicide were not truly associated with any homicidal plan or intenteven though she had said that she would "shoot" her , her daughter, and her son-in-law. -While it seems clear that the patient does not intend homicide, she does experience significant mood alterations and we believe that an important goal will be to acquire her 's assurance that he will secure or remove all firearms from the home. Reviewed. Marital issues longstanding but exacerbated by COVID, appears depressed, limited intellectual ability to process (concrete), does not appear to be able to cope with return home at this time and need to pursue other housing options. (2) Mood disorder: 07/24/2019 -The patient has been admitted to the locked behavioral health unit and is being closely observed. She has been referred for individual, group and activities therapy. The fundamental goal of these therapies will be to help the patient achieve improved individual coping strategies and to encourage the appropriate use of leisure as a way of dissuading her from dwelling on morbid thoughts. As above, the patient has several constructive hobbies. These include "scrapbooking" and painting. -The plan is to continue her current psychiatric medications, namely lamotrigine, citalopram, and lorazepam at bedtime. All medications will be continued at their current dosages. -We talked to the patient about discontinuing lorazepam given her history of bilateral knee surgery as well as a history of multiple falls. She was advised that lorazepam increases the risk for falls and may adversely affect balance. The patient indicates that she is aware of these risk and uses a walker. She says "if I get up in the night I know to be extremely careful." She says she believes that lorazepam does help her sleep better at night. She had been taking lorazepam during the day, but found that it caused excess sedation. Reviewed. Inventory Assets Strengths: Pleasant. Cooperative. Motivated to treatment and recovery. Personable. Has a number of hobbies and interests, including painting and scrap booking. 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 Needs: Improved individual coping strategies. Reduction of risk through securing firearms in her home. Further mood stabilization. Risk Factors Assessment Male: No : Yes Do You Have Access To A Gun?: Yes Health Problems: Yes Mental Health Diagnoses: Yes Substance Use Disorders: No Previous Attempt: Yes Previous Attempt; Highly Lethal: No Previous Attempt; Planned: No Previous Attempt; Didn't Tell Anyone: No Family History of Suicide: No Previous Psychiatric Hospitalization: Yes Hopelessness: No Smoker: No Protective Factors Assessment Jewish Beliefs: Yes : Yes Responsible for Young Children: No Employed: No Stable Relationships: Yes Supportive Family: Yes Good Rapport with Provider: Yes Absence of Any Risk Factors Above: No Interval History Chief Complaint "he's just mean to me". Review of Systems Sleep Information Total Hours of Sleep: 5 Sleep Comments: received a prn hs dose of vistaril for sleep aid used her oxygen till 0030 then did not want to use it anymore-pulse ox 97-96 on room air Meal Information Percent Meal Consumed - Breakfast: 100 Percent Meal Consumed - Lunch: 100 Percent Meal Consumed - Dinner: 100 Nutrition Comment: documented from the pt. meal record Subjective Subjective Patient was seen & assessed and interval progress reviewed with nursing and social work. No new issues overnight, rather concrete in problem solving around marital concerns. hadn't been in contact with staff until this am, states guns are locked but no amenable to meeting. Patient clearly becomes overwhelmed with prospect of return home and can't safety plan. Overwhelmed by house in disarray and often Physical Exam Psychiatric Orientation: alert, oriented x 3 and cooperative Apperance: appropriately dressed, appropriately groomed and appeared stated age Eye Contact: + fair eye contact Motor Behavior: steady gait and station Speech: normal rate/rhythm/volume of speech Thought Process: + tangential thought process Thought Content: reality based without delusions Suicidal Thoughts: denies suicidal thoughts Homicidal Thoughts: denies homicidal thoughts Hallucinations: no auditory hallucinations and no visual hallucinations Cognition: recent memory grossly intact, remote memory grossly intact, attention grossly intact and language grossly intact Estimated Intelligence: + below average estimated intelligence Insight: + fair insight Judgement: + fair judgement Vital Signs (Past 24 Hours) Last Vital Signs Temp 36.5 C 07/25/19 06:46 Pulse 77 07/25/19 06:47 Resp 18 07/25/19 06:46 BP 138/83 07/25/19 06:47 Pulse Ox 95 07/23/19 16:23 Results & Data ([facility]) Current Inpatient Medications Current Inpatient Medications: Current Inpatient Medications Acetaminophen (Tylenol) 650 mg PO Q4H PRN PRN Reason: Headache or Minor Fever Stop: 08/22/19 15:36 Last Admin: 07/24/19 12:36 Dose: 650 mg Documented by: Al Hydrox/Mg Hydrox/Simethicone (Maalox) 30 ml PO Q4H PRN PRN Reason: GI Upset Stop: 08/22/19 15:36 Artificial Tears (Artificial Tears) 1 drops OP QAM PRN PRN Reason: DRY EYES Stop: 08/23/19 09:15 Bismuth Subsalicylate (Kaopectate) 15 ml PO PRN PRN PRN Reason: Loose Stool Stop: 08/22/19 15:36 Citalopram Hydrobromide (Celexa) 40 mg PO QAM MARTIN Stop: 08/23/19 09:29 Last Admin: 07/25/19 08:49 Dose: 40 mg Documented by: Hydroxyzine HCl (Vistaril) 50 mg PO HSZ PRN PRN Reason: Insomnia Stop: 08/22/19 15:36 Last Admin: 07/24/19 23:30 Dose: 50 mg Documented by: Hydroxyzine HCl (Vistaril) 25 mg PO Q4H PRN PRN Reason: Anxiety Stop: 08/22/19 15:36 Last Admin: 07/24/19 04:27 Dose: 25 mg Documented by: Lamotrigine (Lamictal) 75 mg PO HS MARTIN Stop: 08/22/19 21:59 Last Admin: 07/24/19 21:38 Dose: 75 mg Documented by: Lamotrigine (Lamictal) 50 mg PO QAM MARTIN Stop: 08/23/19 09:29 Last Admin: 07/25/19 08:49 Dose: 50 mg Documented by: Latanoprost (Xalatan Oph) 1 drops OP HS MARTIN Stop: 08/22/19 21:59 Last Admin: 07/24/19 22:49 Dose: 1 drops Documented by: Levothyroxine Sodium (Synthroid) 125 mcg PO DAILYBB MARTIN Stop: 08/23/19 09:14 Last Admin: 07/25/19 08:49 Dose: 125 mcg Documented by: Lorazepam (Ativan) 0.25 mg PO HS MARTIN Stop: 08/23/19 21:59 Last Admin: 07/24/19 21:39 Dose: 0.25 mg Documented by: Magnesium Hydroxide (Milk Of Magnesia) 30 ml PO DAILY PRN PRN Reason: Constipation Stop: 08/22/19 15:36 Meclizine HCl (Antivert) 25 mg PO DAILY PRN PRN Reason: Dizziness Stop: 08/23/19 08:53 Multivitamins (Multivitamin Tab) 1 tab PO QAM MARTIN Stop: 08/23/19 09:14 Last Admin: 07/25/19 08:49 Dose: 1 tab Documented by: Sodium Chloride ([place] Nasal) 1 - 2 sprays NA PRN PRN PRN Reason: Nasal Dryness/Congestion Stop: 08/22/19 15:36 Timolol Maleate (Timoptic 0.25% Oph) 1 drops OPB QAM [facility] Stop: 08/23/19 09:29 Last Admin: 07/24/19 21:40 Dose: 1 drops Documented by: Mental Health & Subst Abuse Tx Psychiatrist Name of Psychiatrist: Gabriella Arnold Psychiatrist's Date of Appointment with Psychiatrist: 08/25/19 Time of Appointment with Psychiatrist: 10:30am Psychiatric Appointment Comment: [address], [address], [place] [address] Therapist Name of Therapist: Liu Herrera Therapist's Date of Therapist Appointment: 07/27/19 Time of Therapist Appointment: 11:00am Therapy Appointment Comment: telehealth appt Post Discharge Appointments Primary Care Physician Name Of Family Doctor: Dr. Louie Dinh
[2019-07-25] MEDS: ACETAMINOPHEN 325 MG TAB PO PRN (15:33)
[2019-07-25] MEDS: LORazepam 0.5 MG TAB PO SCH (21:06)
[2019-07-25] MEDS: LATANOPROST 0.005% OP SOLN 2.5 ML BTL OP SCH (21:09)
[2019-07-26] MEDS: lamoTRIgine 25 MG TAB PO SCH (09:22)
[2019-07-26] MEDS: CITALOPRAM 40 MG TAB PO SCH (09:22)
[2019-07-26] MEDS: MULTIVITAMIN TAB PO SCH (09:22)
[2019-07-26] MEDS: TIMOLOL MALEATE 0.25% OP SOLN 5 ML BTL OPB SCH (09:23)
[2019-07-26] MEDS: LEVOTHYROXINE SODIUM 125 MCG TABLET PO SCH (09:23)
[2019-07-26] MEDS ORDERED: lamoTRIgine 100 MG TAB PO ONE (11:21)
--- NOTE | 2019-07-26 11:32 | Psychiatric Progress Note ---
Date of Service July 26, 2019 Impression / Recommendations Impression This 64-year-old woman presents with known diagnoses of major depressive disorder, recurrent, without psychotic features; generalized anxiety disorder; and PTSD. She was admitted through the emergency department after she told her outpatient psychotherapist that she had had thoughts of shooting her , her daughter, and her new [id number] the therapist was unable to execute her duty to warn because she was unable to reach the patient's . (The evidently was little or no concern regarding the daughter and son-in-law given that the patient's daughter and son-in-law are currently in the state of [place] and the patient voices no plan to travel to [place]. Her symptoms of depression include depressed mood, crying spells, apathy, anhedonia, anergia, poor concentration and fatigue. However, she reports that she does not feel that she has been particularly depressed recentlyother than possibly yesterday. She does not have a history of sammy or hypomania. The patient reports that, usual ly, her psychiatric medications work "really good," but she has been somewhat overwhelmed by the manner in which her often treats her. She describes his manner as being disrespectful, dismissive, and abrupt. And she notes that yesterday was a particularly bad day regarding this behavior on the part of her . She is angry at her younger daughter and son-in-law because they had planned to in [place] in a traditional wedding with the families of both the bride and groom invited. Instead, they chose to "elope" to [place], and neither the patient nor her were invitedalthough, evidently, the patient's older daughter was invited. One of the concerns is the fact that the patient makes it clear that there are number of firearms located in the home that she shares with her . The patient's report is that these firearms are not secured. Of note, within this context, is the fact that the patient tells us that she does not have any homicidal intent, even though she does acknowledge that she has had fleeting thoughts of shooting her and even her daughter and son-in-law when ruminating about her feelings of being disrespected and discarded. She clarifies that she understands that murder is wrong, inconsistent with L[employer] teaching, and she has that it is something that she would never actually do. While, we feel fairly confident the patient is not actively homicidal and that her long-term risk for homicide is quite low, under the circumstances we do want to advise the patient's family that the patient has had thoughts of homicide involving them. We also want to secure a promise on the part of the patient's to secure the firearms in their home. Reviewed per admitting physician. Remains hopeless re: home situation (1) Homicidal ideations: 07/24/2019 -The patient [facility] and is being closely observed. She is not considered to be a risk for homicide on the unit as her homicidal thoughts were specific to family members. -Today, the patient reports that her thoughts of homicide were fairly acute yesterday, but have essentially resolved. She also convincingly tells us that the thoughts of homicide were not truly associated with any homicidal plan or intenteven though she had said that she would "shoot" her , her daughter, and her son-in-law. -While it seems clear that the patient does not intend homicide, she does experience significant mood alterations and we believe that an important goal will be to acquire her 's assurance that he will secure or remove all firearms from the home. 07/24 and now 07/25--Reviewed. Marital issues longstanding but exacerbated by COVID, appears depressed, limited intellectual ability to process (concrete), does not appear to be able to cope with return home at this time and need to pursue other housing options. (2) Mood disorder: 07/24/2019 -The patient has been admitted to the locked behavioral health unit and is being closely observed. She has been referred for individual, group and activities therapy. The fundamental goal of these therapies will be to help the patient achieve improved individual coping strategies and to encourage the appropriate use of leisure as a way of dissuading her from dwelling on morbid thoughts. As above, the patient has several constructive hobbies. These include "scrapbooking" and painting. -The plan is to continue her current psychiatric medications, namely lamotrigine, citalopram, and lorazepam at bedtime. All medications will be continued at their current dosages. -We talked to the patient about discontinuing lorazepam given her history of bilateral knee surgery as well as a history of multiple falls. She was advised that lorazepam increases the risk for falls and may adversely affect balance. The patient indicates that she is aware of these risk and uses a walker. She says "if I get up in the night I know to be extremely careful." She says she believes that lorazepam does help her sleep better at night. She had been taking lorazepam during the day, but found that it caused excess sedation. Reviewed. 07/25--she is agreeable to finalize lorazepam taper so d/c Ativan 0.25 mg. Discussed titration of Lamictal for mood and also ease of dosing as she admits difficult to remember 3 tabs in evening. Shift to 150 mg Lamictal in am. She doesn't recall ever trying once a day dosing (ie no side effects) Inventory Assets Strengths: Pleasant. Cooperative. Motivated to treatment and recovery. Personable. Has a number of hobbies and interests, including painting and scrap booking. She is also reportedly an active member of her [employer]. Needs: Improved individual coping strategies. Reduction of risk through securing firearms in her home. Further mood stabilization. Risk Factors Assessment Male: No : Yes Do You Have Access To A Gun?: Yes Health Problems: Yes Mental Health Diagnoses: Yes Substance Use Disorders: No Previous Attempt: Yes Previous Attempt; Highly Lethal: No Previous Attempt; Planned: No Previous Attempt; Didn't Tell Anyone: No Family History of Suicide: No Previous Psychiatric Hospitalization: Yes Hopelessness: No Smoker: No Protective Factors Assessment Synagogue Beliefs: Yes : Yes Responsible for Young Children: No Employed: No Stable Relationships: Yes Supportive Family: Yes Good Rapport with Provider: Yes Absence of Any Risk Factors Above: No Interval History Chief Complaint "I can't be this emotional in front of him, nothing is going to change". Review of Systems Sleep Information Total Hours of Sleep: 6.25 Sleep Comments: received a prn hs dose of vistaril for sleep aid used her oxygen till 0030 then did not want to use it anymore-pulse ox 97-96 on room air Meal Information Percent Meal Consumed - Breakfast: 100 Percent Meal Consumed - Lunch: 50 Percent Meal Consumed - Dinner: 100 Nutrition Comment: documented from the pt. meal record Subjective Subjective Patient was seen & assessed and interval progress reviewed with nursing and social work. Apparently made another statement in frustration yesterday about , she is clear that she doesn't want to hurt anyone she just doesn't know what to do, how to live in their home. Tried to problem solve how she could get help with housework, etc but they do not have home clinical allergist's insurance. She does not believe that he will allow AAA assessment ( 74). Discussed trying to involve her sister in law or director of math in safety planning and she is unsure about this at this time. Physical Exam Psychiatric Orientation: alert, oriented x 3 and cooperative Apperance: appropriately dressed, appropriately groomed and appeared stated age Eye Contact: + fair eye contact Motor Behavior: steady gait and station Speech: normal rate/rhythm/volume of speech Thought Process: + circumstantial thought process Thought Content: reality based without delusions Suicidal Thoughts: denies suicidal thoughts Homicidal Thoughts: denies homicidal thoughts Hallucinations: no auditory hallucinations and no visual hallucinations Cognition: recent memory grossly intact, remote memory grossly intact, attention grossly intact and language grossly intact Estimated Intelligence: + below average estimated intelligence Insight: + limited insight Judgement: + limited judgement Vital Signs (Past 24 Hours) Last Vital Signs Temp 36.6 C 07/26/19 06:33 Pulse 89 07/26/19 06:33 Resp 18 07/26/19 06:33 BP 159/92 H 07/26/19 06:33 Pulse Ox 95 07/23/19 16:23 Results & Data ([facility]) Current Inpatient Medications Current Inpatient Medications: Current Inpatient Medications Acetaminophen (Tylenol) 650 mg PO Q4H PRN PRN Reason: Headache or Minor Fever Stop: 08/22/19 15:36 Last Admin: 07/25/19 15:33 Dose: 650 mg Documented by: Al Hydrox/Mg Hydrox/Simethicone (Maalox) 30 ml PO Q4H PRN PRN Reason: GI Upset Stop: 08/22/19 15:36 Artificial Tears (Artificial Tears) 1 drops OP QAM PRN PRN Reason: DRY EYES Stop: 08/23/19 09:15 Bismuth Subsalicylate (Kaopectate) 15 ml PO PRN PRN PRN Reason: Loose Stool Stop: 08/22/19 15:36 Citalopram Hydrobromide (Celexa) 40 mg PO QAM MARTIN Stop: 08/23/19 09:29 Last Admin: 07/26/19 09:22 Dose: 40 mg Documented by: Hydroxyzine HCl (Vistaril) 50 mg PO HSZ PRN PRN Reason: Insomnia Stop: 08/22/19 15:36 Last Admin: 07/24/19 23:30 Dose: 50 mg Documented by: Hydroxyzine HCl (Vistaril) 25 mg PO Q4H PRN PRN Reason: Anxiety Stop: 08/22/19 15:36 Last Admin: 07/25/19 22:18 Dose: 25 mg Documented by: Lamotrigine (Lamictal) 50 mg PO [facility] Stop: 08/23/19 09:29 Last Admin: 07/26/19 09:22 Dose: 50 mg Documented by: Lamotrigine (Lamictal) 100 mg PO ONE ONE Stop: 07/26/19 11:22 Lamotrigine (Lamictal) 150 mg PO [facility] Stop: 08/26/19 08:59 Latanoprost (Xalatan Oph) 1 drops OP [facility] Stop: 08/22/19 21:59 Last Admin: 07/25/19 21:09 Dose: 1 drops Documented by: Levothyroxine S[facility] ([facility]) [facility] Stop: 08/23/19 09:14 Last Admin: 07/26/19 09:23 Dose: 125 mcg Documented by: Magnesium Hydroxide (Milk Of Magnesia) 30 ml PO DAILY PRN PRN Reason: Constipation Stop: 08/22/19 15:36 Meclizine HCl (Antivert) 25 mg PO DAILY PRN PRN Reason: Dizziness Stop: 08/23/19 08:53 Multivitamins (Multivitamin Tab) 1 tab PO [facility] Stop: 08/23/19 09:14 Last Admin: 07/26/19 09:22 Dose: 1 tab Documented by: Sodium Chloride ([place] Nasal) 1 - 2 sprays NA PRN PRN PRN Reason: Nasal Dryness/Congestion Stop: 08/22/19 15:36 Timolol Maleate (Timoptic 0.25% Oph) 1 drops OPB [facility] Stop: 08/23/19 09:29 Last Admin: 07/26/19 09:23 Dose: 1 drops Documented by: Mental Health & Subst Abuse Tx Psychiatrist Name of Psychiatrist: Gabriella Arnold Psychiatrist's Date of Appointment with Psychiatrist: 08/25/19 Time of Appointment with Psychiatrist: 10:30am Psychiatric Appointment Comment: [id number], [address], [place] [address] Therapist Name of Therapist: Liu Herrera Therapist's Date of Therapist Appointment: 07/27/19 Time of Therapist Appointment: 11:00am Therapy Appointment Comment: telehealth appt Post Discharge Appointments Primary Care Physician Name Of Family Doctor: Dr. Louie Dinh
[2019-07-26] MEDS: ACETAMINOPHEN 325 MG TAB PO PRN (14:16)
[2019-07-26] MEDS: LATANOPROST 0.005% OP SOLN 2.5 ML BTL OP SCH (21:10)
--- NOTE | 2019-07-27 07:52 | Psychiatric Progress Note ---
Date of Service July 27, 2019 Impression / Recommendations Impression This 64-year-old woman presents with known diagnoses of major depressive disorder, recurrent, without psychotic features; generalized anxiety disorder; and PTSD. She was admitted through the emergency department after she told her outpatient psychotherapist that she had had thoughts of shooting her , her daughter, and her new [id number] the therapist was unable to execute her duty to warn because she was unable to reach the patient's . (The evidently was little or no concern regarding the daughter and son-in-law given that the patient's daughter and son-in-law are currently in the state of [place] and the patient voices no plan to travel to [place]. Her symptoms of depression include depressed mood, crying spells, apathy, anhedonia, anergia, poor concentration and fatigue. However, she reports that she does not feel that she has been particularly depressed recentlyother than possibly yesterday. She does not have a history of sammy or hypomania. The patient reports that, usual ly, her psychiatric medications work "really good," but she has been somewhat overwhelmed by the manner in which her often treats her. She describes his manner as being disrespectful, dismissive, and abrupt. And she notes that yesterday was a particularly bad day regarding this behavior on the part of her . She is angry at her younger daughter and son-in-law because they had planned to in [place] in a traditional wedding with the families of both the bride and groom invited. Instead, they chose to "elope" to [place], and neither the patient nor her were invitedalthough, evidently, the patient's older daughter was invited. One of the concerns is the fact that the patient makes it clear that there are number of firearms located in the home that she shares with her . The patient's report is that these firearms are not secured. Of note, within this context, is the fact that the patient tells us that she does not have any homicidal intent, even though she does acknowledge that she has had fleeting thoughts of shooting her and even her daughter and son-in-law when ruminating about her feelings of being disrespected and discarded. She clarifies that she understands that murder is wrong, inconsistent with Religion teaching, and she has that it is something that she would never actually do. While, we feel fairly confident the patient is not actively homicidal and that her long-term risk for homicide is quite low, under the circumstances we do want to advise the patient's family that the patient has had thoughts of homicide involving them. We also want to secure a promise on the part of the patient's to secure the firearms in their home. Reviewed per admitting physician. 07/26--positive response to unit interventions, working on safety plan. Plan: family meeting. Inventory Assets Strengths: Pleasant. Cooperative. Motivated to treatment and recovery. Personable. Has a number of hobbies and interests, including painting and scrap booking. She is also reportedly an active member of her anabaptism. Needs: Improved individual coping strategies. Reduction of risk through securing firearms in her home. Further mood stabilization. Risk Factors Assessment Male: No : Yes Do You Have Access To A Gun?: Yes Health Problems: Yes Mental Health Diagnoses: Yes Substance Use Disorders: No Previous Attempt: Yes Previous Attempt; Highly Lethal: No Previous Attempt; Planned: No Previous Attempt; Didn't Tell Anyone: No Family History of Suicide: No Previous Psychiatric Hospitalization: Yes Hopelessness: No Smoker: No Protective Factors Assessment [employer] Beliefs: Yes : Yes Responsible for Young Children: No Employed: No Stable Relationships: Yes Supportive Family: Yes Good Rapport with Provider: Yes Absence of Any Risk Factors Above: No Interval History Chief Complaint "he's not going to change". Review of Systems Sleep Information Total Hours of Sleep: 5 Sleep Comments: received a prn hs dose of vistaril for sleep aid used her oxygen till 0030 then did not want to use it anymore-pulse ox 97-96 on room air Meal Information Percent Meal Consumed - Breakfast: 100 Percent Meal Consumed - Lunch: 100 Percent Meal Consumed - Dinner: 100 Nutrition Comment: documented from the pt. meal record Subjective Subjective Patient was seen & assessed and interval progress reviewed with treatment team. She has exhausted ideas on alternative living arrangements following hospitalization. Reviewed need for phone meeting with re: transition home/transportation as consistently denying HI. Physical Exam Psychiatric Orientation: alert, oriented x 3 and cooperative Apperance: appropriately dressed, appropriately groomed and appeared stated age Eye Contact: + fair eye contact Motor Behavior: steady gait and station Speech: normal rate/rhythm/volume of speech Thought Process: + circumstantial thought process Thought Content: reality based without delusions Suicidal Thoughts: denies suicidal thoughts Homicidal Thoughts: denies homicidal thoughts Hallucinations: no auditory hallucinations and no visual hallucinations Cognition: recent memory grossly intact, remote memory grossly intact, attention grossly intact and language grossly intact Estimated Intelligence: + below average estimated intelligence Insight: + limited insight Judgement: + limited judgement Vital Signs (Past 24 Hours) Last Vital Signs Temp 36.6 C 07/27/19 06:31 Pulse 81 07/27/19 06:31 Resp 18 07/27/19 06:31 BP 158/85 H 07/27/19 06:31 Pulse Ox 95 07/23/19 16:23 Results & Data ([facility]) Current Inpatient Medications Current Inpatient Medications: Current Inpatient Medications Acetaminophen (Tylenol) 650 mg PO Q4H PRN PRN Reason: Headache or Minor Fever Stop: 08/22/19 15:36 Last Admin: 07/26/19 14:16 Dose: 650 mg Documented by: Al Hydrox/Mg Hydrox/Simethicone (Maalox) 30 ml PO Q4H PRN PRN Reason: GI Upset Stop: 08/22/19 15:36 Artificial Tears (Artificial Tears) 1 drops OP QAM PRN PRN Reason: DRY EYES Stop: 08/23/19 09:15 Bismuth Subsalicylate (Kaopectate) 15 ml PO PRN PRN PRN Reason: Loose Stool Stop: 08/22/19 15:36 Citalopram Hydrobromide (Celexa) 40 mg PO QAM MARTIN Stop: 08/23/19 09:29 Last Admin: 07/26/19 09:22 Dose: 40 mg Documented by: Hydroxyzine HCl (Vistaril) 50 mg PO HSZ PRN PRN Reason: Insomnia Stop: 08/22/19 15:36 Last Admin: 07/27/19 01:59 Dose: 50 mg Documented by: Hydroxyzine HCl (Vistaril) 25 mg PO Q4H PRN PRN Reason: Anxiety Stop: 08/22/19 15:36 Last Admin: 07/25/19 22:18 Dose: 25 mg Documented by: Lamotrigine (Lamictal) 150 mg PO QAM MARTIN Stop: 08/26/19 08:59 Latanoprost (Xalatan Oph) 1 drops OP HS MARTIN Stop: 08/22/19 21:59 Last Admin: 07/26/19 21:10 Dose: 1 drops Documented by: Levothyroxine Sodium (Synthroid) 125 mcg PO DAILYBB MARTIN Stop: 08/23/19 09:14 Last Admin: 07/26/19 09:23 Dose: 125 mcg Documented by: Magnesium Hydroxide (Milk Of Magnesia) 30 ml PO DAILY PRN PRN Reason: Constipation Stop: 08/22/19 15:36 Meclizine HCl (Antivert) 25 mg PO DAILY PRN PRN Reason: Dizziness Stop: 08/23/19 08:53 Multivitamins (Multivitamin Tab) 1 tab PO QAM MARTIN Stop: 08/23/19 09:14 Last Admin: 07/26/19 09:22 Dose: 1 tab Documented by: Sodium Chloride (Cobb Nasal) 1 - 2 sprays NA PRN PRN PRN Reason: Nasal Dryness/Congestion Stop: 08/22/19 15:36 Timolol Maleate (Timoptic 0.25% Oph) 1 drops OPB QAM MARTIN Stop: 08/23/19 09:29 Last Admin: 07/26/19 09:23 Dose: 1 drops Documented by: Mental Health & Subst Abuse Tx Psychiatrist Name of Psychiatrist: Gabriella Arnold Psychiatrist's Date of Appointment with Psychiatrist: 08/25/19 Time of Appointment with Psychiatrist: 10:30am Psychiatric Appointment Comment: [address], [address], [place] [address] Therapist Name of Therapist: Liu Herrera Therapist's Date of Therapist Appointment: 07/27/19 Time of Therapist Appointment: 11:00am Therapy Appointment Comment: telehealth appt Post Discharge Appointments Primary Care Physician Name Of Family Doctor: Dr. Louie Dinh
[2019-07-27] MEDS: LEVOTHYROXINE SODIUM 125 MCG TABLET PO SCH (08:38)
[2019-07-27] MEDS: CITALOPRAM 40 MG TAB PO SCH (08:38)
[2019-07-27] MEDS: MULTIVITAMIN TAB PO SCH (08:38)
[2019-07-27] MEDS: lamoTRIgine 100 MG TAB PO SCH (08:39)
[2019-07-27] MEDS: TIMOLOL MALEATE 0.25% OP SOLN 5 ML BTL OPB SCH (08:40)
[2019-07-27] MEDS: LATANOPROST 0.005% OP SOLN 2.5 ML BTL OP SCH (21:26)
[2019-07-28] MEDS: CITALOPRAM 40 MG TAB PO SCH (07:53)
[2019-07-28] MEDS: LEVOTHYROXINE SODIUM 125 MCG TABLET PO SCH (07:53)
[2019-07-28] MEDS: lamoTRIgine 100 MG TAB PO SCH (07:54)
[2019-07-28] MEDS: TIMOLOL MALEATE 0.25% OP SOLN 5 ML BTL OPB SCH (07:54)
[2019-07-28] MEDS: MULTIVITAMIN TAB PO SCH (07:54)
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
[2019-07-28] MEDS ORDERED: DESTROY THIS MEDICATION ONE (15:04)
== END 2019-07-28 17:48 | disposition home or self-care (01) | DRG 885 ==
LOC: ED 12:49 → 3S 15:39